=== PATIENT | female | born 1940 | race Caucasian/White ===

== ENCOUNTER 2016-11-04 11:59 | Emergency (ER) | payer MEDICARE ==
[2016-11-04 12:31] VITALS: BP 119/65
--- NOTE | 2016-11-04 14:53 | Emergency Department Report ---
ED ENT HPI - General Chief complaint: Sore Throat Stated complaint: SORET THROAT Time Seen by Provider: 11/04/16 14:15 Source: patient Mode of arrival: Ambulatory Limitations: No Limitations - History of Present Illness MD complaint: sore throat -: Gradual, week(s) (2) Location: throat Severity: mild Quality: burning Worsens with: swallowing - Related Data Previous Rx's Medication Instructions Recorded Last Taken Type Amoxicillin [Amoxicillin TAB] 875 mg PO BID #20 tablet 11/04/16 Unknown Rx Allergies Allergy/AdvReac Type Severity Reaction Status Date / Time No Known Allergies Allergy Unverified 11/04/16 12:26 ED Dental HPI - General Chief complaint: Sore Throat Stated complaint: SORET THROAT Time Seen by Provider: 11/04/16 14:15 Source: patient Mode of arrival: Ambulatory Limitations: No Limitations - History of Present Illness MD complaint: sore throat Severity: mild Quality: burning Worsens with: swallowing - Related Data Previous Rx's Medication Instructions Recorded Last Taken Type Amoxicillin [Amoxicillin TAB] 875 mg PO BID #20 tablet 11/04/16 Unknown Rx Allergies Allergy/AdvReac Type Severity Reaction Status Date / Time No Known Allergies Allergy Unverified 11/04/16 12:26 ED Review of Systems ROS: Stated complaint: SORET THROAT Other details as noted in HPI Constitutional: denies: chills, fever Eyes: denies: eye pain, eye discharge, vision change ENT: throat pain. denies: ear pain Respiratory: denies: cough, shortness of breath, wheezing Cardiovascular: denies: chest pain, palpitations Endocrine: no symptoms reported Gastrointestinal: denies: abdominal pain, nausea, diarrhea Genitourinary: denies: urgency, dysuria, discharge Musculoskeletal: denies: back pain, joint swelling, arthralgia Skin: denies: rash, lesions Neurological: denies: headache, weakness, paresthesias Psychiatric: denies: anxiety, depression Hematological/Lymphatic: denies: easy bleeding, easy bruising ED Past Medical Hx - Past Medical History Previous Medical History?: Yes Hx Hypertension: Yes - Surgical History Past Surgical History?: Yes Additional Surgical History: Hysterectomy - Social History Smoking Status: Former Smoker Substance Use Type: Alcohol, Prescribed - Medications Home Medications: Home Medications Medication Instructions Recorded Confirmed Last Taken Type Amoxicillin [Amoxicillin TAB] 875 mg PO BID #20 tablet 11/04/16 Unknown Rx ED Physical Exam - General Limitations: No Limitations General appearance: alert, in no apparent distress - Head Head exam: Present: atraumatic, normocephalic - Eye Eye exam: Present: normal appearance - ENT ENT exam: Present: mucous membranes moist - Expanded ENT Exam Expanded Throat exam: Positive: tonsillar erythema. Negative: tonsillar exudate, R peritonsillar mass, L peritonsillar mass - Neck Neck exam: Present: normal inspection, full ROM. Absent: tenderness, meningismus, lymphadenopathy - Respiratory Respiratory exam: Present: normal lung sounds bilaterally. Absent: respiratory distress - Cardiovascular Cardiovascular Exam: Present: regular rate, normal rhythm. Absent: systolic murmur, diastolic murmur, rubs, gallop - GI/Abdominal GI/Abdominal exam: Present: soft, normal bowel sounds - Extremities Exam Extremities exam: Present: normal inspection - Back Exam Back exam: Present: normal inspection - Neurological Exam Neurological exam: Present: alert, oriented X3 - Psychiatric Psychiatric exam: Present: normal affect, normal mood - Skin Skin exam: Present: warm, dry, intact, normal color. Absent: rash ED Course Vital Signs 11/04/16 12:26 Temperature 97.7 F Pulse Rate 81 Respiratory 16 Rate Blood Pressure 119/65 O2 Sat by Pulse 99 Oximetry Critical care attestation.: If time is entered above; I have spent that time in minutes in the direct care of this critically ill patient, excluding procedure time. ED Disposition Clinical Impression: Pharyngitis Disposition: DISCHARGED TO HOME OR SELFCARE Is pt being admited?: No Condition: Stable Instructions: Pharyngitis (ED) Prescriptions: Amoxicillin [Amoxicillin TAB] 875 mg PO BID #20 tablet Referrals: NISA EISENBERG MD [Primary Care Provider] - 3-5 Days
== END 2016-11-04 15:11 | disposition home or self-care (01) ==
LOC: ED 11:59
DX: J02.9 Acute pharyngitis, unspecified (principal); I10 Essential (primary) hypertension; Z87.891 Personal history of nicotine dependence
CPT/HCPCS: 99282

== ENCOUNTER 2022-03-31 18:48 | Emergency (ER) | payer MEDICARE ==
[2022-03-31 19:35] VITALS: BP 138/78
[2022-03-31] MEDS ORDERED: SODIUM CHLORIDE 0.9% 1000 ML 1,000 ML IV ONE (20:53)
--- NOTE | 2022-03-31 20:57 | Emergency Department Report ---
ED Female HPI - General Chief complaint: Urogenital-Female Stated complaint: UTI Time Seen by Provider: 03/31/22 20:33 Source: EMS Mode of arrival: Stretcher Limitations: Other - History of Present Illness Initial comments: 81 yo F with h/o dementia brought in by son with concern for likely bladder infection base on this patient urine smell. History is very limited to Son. No other modifying or associated factors. - Related Data Previous Rx's Medication Instructions Recorded Last Taken Type Amoxicillin [Amoxicillin TAB] 875 mg PO BID #20 tablet 11/04/16 Unknown Rx cephALEXin 150 mg PO BID 7 Days #7 04/01/22 Unknown Rx Allergies Allergy/AdvReac Type Severity Reaction Status Date / Time No Known Allergies Allergy Unverified 11/04/16 12:26 ED Review of Systems ROS: Stated complaint: UTI Other details as noted in HPI Comment: All other systems reviewed and negative Genitourinary: urgency, dysuria, frequency ED Past Medical Hx - Past Medical History Hx Hypertension: Yes - Surgical History Additional Surgical History: Hysterectomy - Social History Smoking Status: Former Smoker Substance Use Type: Alcohol, Prescribed - Medications Home Medications: Home Medications Medication Instructions Recorded Confirmed Last Taken Type Amoxicillin [Amoxicillin TAB] 875 mg PO BID #20 tablet 11/04/16 Unknown Rx cephALEXin 150 mg PO BID 7 Days #7 04/01/22 Unknown Rx ED Physical Exam - General Limitations: Other General appearance: other (demented) - Head Head exam: Present: normal inspection - Eye Eye exam: Present: normal appearance Pupils: Present: normal accommodation - ENT ENT exam: Present: normal exam, normal orophraynx, mucous membranes moist - Neck Neck exam: Present: normal inspection, full ROM. Absent: tenderness - Respiratory Respiratory exam: Present: normal lung sounds bilaterally. Absent: respiratory distress, accessory muscle use - Cardiovascular Cardiovascular Exam: Present: regular rate, normal heart sounds. Absent: normal rhythm - GI/Abdominal GI/Abdominal exam: Present: soft, normal bowel sounds. Absent: distended, te nderness - Extremities Exam Extremities exam: Present: normal inspection, normal capillary refill. Absent: tenderness, pedal edema - Back Exam Back exam: Absent: tenderness - Neurological Exam Neurological exam: Present: other (dementia) - Skin Skin exam: Present: warm, normal color ED Course Vital Signs 03/31/22 19:32 Pulse Rate 78 Respiratory 99 H Rate Blood Pressure 138/78 [Right] O2 Sat by Pulse 3 L Oximetry - Reevaluation(s) Reevaluation #1: 04/01/22 00:[address] Yeager while waiting for UA -- ED Medical Decision Making - Lab Data Result diagrams: 03/31/22 22:59 04/01/22 04:32 - Medical Decision Making here with possible UTI -- with h/o dementia -- will go ahead and order CBC, CMP and UA and give ivf ns 1L bolus x 1-- Labs reviewed and noted with elevated BUN/Cr 62/2.7 with normal potassium -- likely dehydration --will continue above ivf ns Also noted with Na+ 148 will hydrate Urinalysis is pending at this time-- pt signed to Dr Yeager while waiting for the UA Critical care attestation.: If time is entered above; I have spent that time in minutes in the direct care of this critically ill patient, excluding procedure time. ED Disposition Clinical Impression: UTI (urinary tract infection) Qualifiers: Urinary tract infection type: site unspecified Hematuria presence: without hematuria Qualified Code(s): N39.0 - Urinary tract infection, site not specified Disposition: HOME / SELF CARE / HOMELESS Is pt being admited?: No Does the pt Need Aspirin: No Condition: Stable Additional Instructions: Follow up with your primary care doctor within 1-2 business days for immediate reassessment. Take keflex 500mg by mouth, every 12 hours, for 7 days until your entire prescription has been completed. Observe your symptoms very carefully. Return to the nearest emergency department as soon as possible if you develop any back or flank pain, abdominal pain, vomiting, dizziness, weakness, any fever of 100.4 Fahrenheit or higher, or if any other new worrisome symptoms develop. Prescriptions: cephALEXin 150 mg PO BID 7 Days #7 Referrals: PRIMARY CARE, [Primary Care Provider] - 3-5 Days
[2022-03-31 23:54] LABS: Albumin 4.8 g/dL (3.9-5); Calcium 9.7 mg/dL (8.4-10.2)
[2022-03-31 23:56] LABS: Basophils % (Auto) 0.1 % (0.0-1.8); Hematocrit 44.7 % (30.3-42.9); Hemoglobin 14.7 gm/dl (10.1-14.3); Lymphocytes % (Auto) 8.6 % (13.4-35.0); Mean Corpuscular HGB Conc 33 % (30-34); Mean Corpuscular Volume 92 fl (79-97); Monocytes # (Auto) 0.9 K/mm3 (0.0-0.8); Monocytes % (Auto) 7.4 % (0.0-7.3); Platelet Count 244 K/mm3 (140-440); Red Blood Count 4.85 M/mm3 (3.65-5.03); Red Cell Distribution Width 15.2 % (13.2-15.2)
[2022-03-31 23:57] LABS: INR 1.1 (0.87-1.13)
[2022-04-01] MEDS ORDERED: SODIUM CHLORIDE 0.9% 1000 ML 1,000 ML ONE (00:27)
[2022-04-01] MEDS ORDERED: SODIUM CHLORIDE 0.9% 1000 ML 1,000 ML IV ONE (00:38)
[2022-04-01 02:58] LABS: Color,Urine Yellow (Yellow)
[2022-04-01 03:00] LABS: Bacteria,Urine 1+ /HPF (Negative); Mucus,Urine FEW /HPF
[2022-04-01] MEDS ORDERED: cefTRIAXone/NS 1 GM/50 ML 1 GM/50 ML BAG IV ONE (03:20)
[2022-04-01 05:56] LABS: Calcium 8.5 mg/dL (8.4-10.2)
--- NOTE | 2022-04-01 06:07 | Event Note ---
Date: 04/01/22 pt signed out to me by Dr. Calhoun. Pt's serum labs reviewed. I assessed the pt independently. She is comfortable appearing and is in no distress. VSS. I ordered the pt to receive 2L of NS IVSS. Repeat BMP demonstrates improvement in renal function. Pt given rocephin IVSS for UTI. Plan of care concerning need for outpatient oral abx (pts son is requesting that if possible, abx be prescribed as liquid secondary to the pt having difficulty swallowing pills) an close f/u with pcp, discussed with the pt's family. Pt's family verbalized understanding. Pt discharged to home in the care of her family.
== END 2022-04-01 06:33 | disposition home or self-care (01) ==
LOC: ED 18:48
DX: N39.0 Urinary tract infection, site not specified (principal); I10 Essential (primary) hypertension; F03.90 Unspecified dementia, unspecified severity, without behavioral disturbance, psychotic disturbance, mood disturbance, and anxiety
CPT/HCPCS: 36415; 80048; 80053; 81001; 85025; 85610; 85730; 87076; 87086; 87186; 96361; 96365; 99284; J0696; J7030; 96375

== ENCOUNTER 2022-04-13 11:09 | Inpatient (IN) | payer MEDICARE ==
[2022-04-13] MEDS ORDERED: SODIUM CHLORIDE 0.9% 1000 ML 1,000 ML IV ONE (12:29)
--- NOTE | 2022-04-13 12:35 | Emergency Department Report ---
ED Altered Mental Status HPI - General Chief Complaint: Altered Mental Status Stated Complaint: AMS Time Seen by Provider: 04/13/22 11:47 Source: patient, EMS Mode of arrival: Stretcher Limitations: Physical Limitation - History of Present Illness Initial Comments: 81 yo F brought in by family member with worsening confusion for the last 2-3 days. Pt has history of dementia and taken medication for it. She was seen at the hospital about 2 weeks ago when she was diagnosed with severe UTI and treated with antibiotics. Family says she seems to get a little better while on the antibiotics only was worsen lately. No fever or chills reported. Pt did not contribute to this history so it is very limited to the family narration. No other modifying or associated factors. MD Complaint: altered mental status - Related Data Previous Rx's Medication Instructions Recorded Last Taken Type Amoxicillin [Amoxicillin TAB] 875 mg PO BID #20 tablet 11/04/16 Unknown Rx cephALEXin 150 mg PO BID 7 Days #7 04/01/22 Unknown Rx Allergies Allergy/AdvReac Type Severity Reaction Status Date / Time No Known Allergies Allergy Unverified 11/04/16 12:26 ED Review of Systems ROS: Stated complaint: AMS Other details as noted in HPI Comment: All other systems reviewed and negative Constitutional: malaise, other (AMS). denies: chills, fever Neurological: other (confusion ) ED Past Medical Hx - Past Medical History Hx Hypertension: Yes Hx Dementia: Yes - Surgical History Additional Surgical History: Hysterectomy - Social History Smoking Status: Former Smoker Substance Use Type: Alcohol, Prescribed - Medications Home Medications: Home Medications Medication Instructions Recorded Confirmed Last Taken Type Amoxicillin [Amoxicillin TAB] 875 mg PO BID #20 tablet 11/04/16 Unknown Rx cephALEXin 150 mg PO BID 7 Days #7 04/01/22 Unknown Rx ED Physical Exam - General Limitations: Physical Limitation General appearance: alert, lethargic - Head Head exam: Present: atraumatic, normal inspection - Eye Eye exam: Present: normal appearance Pupils: Present: normal accommodation - ENT ENT exam: Present: normal exam, normal orophraynx, mucous membranes dry - Neck Neck exam: Present: normal inspection. Absent: tenderness - Respiratory Respiratory exam: Present: normal lung sounds bilaterally. Absent: respiratory distress, accessory muscle use - Cardiovascular Cardiovascular Exam: Present: regular rate, normal rhythm, normal heart sounds - GI/Abdominal GI/Abdominal exam: Present: soft, normal bowel sounds. Absent: distended, tenderness - Extremities Exam Extremities exam: Present: normal inspection, normal capillary refill. Absent: tenderness, pedal edema - Back Exam Back exam: Absent: tenderness - Neurological Exam Neurological exam: Present: alert, other (demented) - Skin Skin exam: Present: warm, normal color ED Course Vital Signs 04/13/22 11:55 Temperature 97.5 F L Pulse Rate 67 Respiratory 16 Rate Blood Pressure 127/73 [Left] O2 Sat by Pulse 99 Oximetry - Consultations Consultation #1: 04/13/22 18:54 Dr Celis consulted who accept pt for further evaluation and treatment - Lab Data Result diagrams: 04/13/22 13:04 04/13/22 13:04 Lab Results 04/13/22 04/13/22 04/13/22 Range/Units 13:04 13:04 13:04 WBC 8.8 (4.5-11.0) K/mm3 RBC 5.00 (3.65-5.03) M/mm3 Hgb 14.8 H (10.1-14.3) gm/dl Hct 46.7 H (30.3-42.9) % MCV 93 (79-97) fl MCH 30 (28-32) pg MCHC 32 (30-34) % RDW 15.5 H (13.2-15.2) % Plt Count 203 (140-440) K/mm3 Lymph % (Auto) 22.6 (13.4-35.0) % [place] % (Auto) 4.5 (0.0-7.3) % Eos % (Auto) 0.9 (0.0-4.3) % Baso % (Auto) 0.5 (0.0-1.8) % Lymph # (Auto) 2.0 (1.2-5.4) K/mm3 [place] # (Auto) 0.4 (0.0-0.8) K/mm3 Eos # (Auto) 0.1 (0.0-0.4) K/mm3 Baso # (Auto) 0.0 (0.0-0.1) K/mm3 Seg Neutrophils % 71.5 H (40.0-70.0) % Seg Neutrophils # 6.3 (1.8-7.7) K/mm3 PT 15.6 H (12.2-14.9) Sec. INR 1.11 (0.87-1.13) APTT 31.3 (24.2-36.6) Sec. Sodium 165 H* (137-145) mmol/L Potassium 4.7 (3.6-5.0) mmol/L Chloride 127.6 H (98-107) mmol/L Carbon Dioxide 29 (22-30) mmol/L Anion Gap 14 mmol/L BUN 66 H (7-17) mg/dL Creatinine 2.8 H (0.6-1.2) mg/dL Estimated GFR 20 ml/min BUN/Creatinine Ratio 24 % Glucose 114 H (65-100) mg/dL Lactic Acid (0.7-2.0) mmol/L Calcium 10.0 (8.4-10.2) mg/dL Total Bilirubin 0.50 (0.1-1.2) mg/dL AST 39 (5-40) units/L ALT 32 (7-56) units/L Alkaline Phosphatase 162 H (35-129) units/L Ammonia (25-60) umol/L Total Protein 7.2 (6.3-8.2) g/dL Albumin 4.3 (3.9-5) g/dL Albumin/Globulin Ratio 1.5 % Urine Color (Yellow) Urine Turbidity (Clear) Specific Ernul (Man) (1.003-1.030) Ur Protein (Man) (Negative) mg/dL Ur Ketones (Man) (Negative) Ur Nitrite (Man) (Negative) Urine Bilirubin (Man) (Negative) Urine Ictotest Leukocyte Esterase (Man) (Negative) Urine WBC (Auto) (0.0-6.0) /HPF Urine RBC (Auto) (0.0-6.0) /HPF U Epithel Cells (Auto) (0-13.0) /HPF Urine Bacteria (Auto) (Negative) /HPF Urine RBC (Manual) (Negative) Salicylates (2.8-20.0) mg/dL Acetaminophen (10.0-30.0) ug/mL 04/13/22 04/13/22 04/13/22 Range/Units 13:04 13:04 13:04 WBC (4.5-11.0) K/mm3 RBC (3.65-5.03) M/mm3 Hgb (10.1-14.3) gm/dl Hct (30.3-42.9) % MCV (79-97) fl MCH (28-32) pg MCHC (30-34) % RDW (13.2-15.2) % Plt Count (140-440) K/mm3 Lymph % (Auto) (13.4-35.0) % [place] % (Auto) (0.0-7.3) % Eos % (Auto) (0.0-4.3) % Baso % (Auto) (0.0-1.8) % Lymph # (Auto) (1.2-5.4) K/mm3 [place] # (Auto) (0.0-0.8) K/mm3 Eos # (Auto) (0.0-0.4) K/mm3 Baso # (Auto) (0.0-0.1) K/mm3 Seg Neutrophils % (40.0-70.0) % Seg Neutrophils # (1.8-7.7) K/mm3 PT (12.2-14.9) Sec. INR (0.87-1.13) APTT (24.2-36.6) Sec. Sodium (137-145) mmol/L Potassium (3.6-5.0) mmol/L Chloride (98-107) mmol/L Carbon Dioxide (22-30) mmol/L Anion Gap mmol/L BUN (7-17) mg/dL Creatinine (0.6-1.2) mg/dL Estimated GFR ml/min BUN/Creatinine Ratio % Glucose (65-100) mg/dL Lactic Acid 2.40 H* (0.7-2.0) mmol/L Calcium (8.4-10.2) mg/dL Total Bilirubin (0.1-1.2) mg/dL AST (5-40) units/L ALT (7-56) units/L Alkaline Phosphatase (35-129) units/L Ammonia 14.0 L (25-60) umol/L Total Protein (6.3-8.2) g/dL Albumin (3.9-5) g/dL Albumin/Globulin Ratio % Urine Color (Yellow) Urine Turbidity (Clear) Specific Ernul (Man) (1.003-1.030) Ur Protein (Man) (Negative) mg/dL Ur Ketones (Man) (Negative) Ur Nitrite (Man) (Negative) Urine Bilirubin (Man) (Negative) Urine Ictotest Leukocyte Esterase (Man) (Negative) Urine WBC (Auto) (0.0-6.0) /HPF Urine RBC (Auto) (0.0-6.0) /HPF U Epithel Cells (Auto) (0-13.0) /HPF Urine Bacteria (Auto) (Negative) /HPF Urine RBC (Manual) (Negative) Salicylates < 0.3 L (2.8-20.0) mg/dL Acetaminophen (10.0-30.0) ug/mL 04/13/22 04/13/22 Range/Units 13:04 13:51 WBC (4.5-11.0) K/mm3 RBC (3.65-5.03) M/mm3 Hgb (10.1-14.3) gm/dl Hct (30.3-42.9) % MCV (79-97) fl MCH (28-32) pg MCHC (30-34) % RDW (13.2-15.2) % Plt Count (140-440) K/mm3 Lymph % (Auto) (13.4-35.0) % [place] % (Auto) (0.0-7.3) % Eos % (Auto) (0.0-4.3) % Baso % (Auto) (0.0-1.8) % Lymph # (Auto) (1.2-5.4) K/mm3 [place] # (Auto) (0.0-0.8) K/mm3 Eos # (Auto) (0.0-0.4) K/mm3 Baso # (Auto) (0.0-0.1) K/mm3 Seg Neutrophils % (40.0-70.0) % Seg Neutrophils # (1.8-7.7) K/mm3 PT (12.2-14.9) Sec. INR (0.87-1.13) APTT (24.2-36.6) Sec. Sodium (137-145) mmol/L Potassium (3.6-5.0) mmol/L Chloride (98-107) mmol/L Carbon Dioxide (22-30) mmol/L Anion Gap mmol/L BUN (7-17) mg/dL Creatinine (0.6-1.2) mg/dL Estimated GFR ml/min BUN/Creatinine Ratio % Glucose (65-100) mg/dL Lactic Acid (0.7-2.0) mmol/L Calcium (8.4-10.2) mg/dL Total Bilirubin (0.1-1.2) mg/dL AST (5-40) units/L ALT (7-56) units/L Alkaline Phosphatase (35-129) units/L Ammonia (25-60) umol/L Total Protein (6.3-8.2) g/dL Albumin (3.9-5) g/dL Albumin/Globulin Ratio % Urine Color Yellow (Yellow) Urine Turbidity Slightly-cloudy (Clear) Specific Ernul (Man) 1.010 (1.003-1.030) Ur Protein (Man) <30 mg dl (Negative) mg/dL Ur Ketones (Man) Negative (Negative) Ur Nitrite (Man) Negative (Negative) Urine Bilirubin (Man) Negative (Negative) Urine Ictotest Not Reportable Leukocyte Esterase (Man) Negative (Negative) Urine WBC (Auto) 23.0 H (0.0-6.0) /HPF Urine RBC (Auto) 23.0 (0.0-6.0) /HPF U Epithel Cells (Auto) 3.0 (0-13.0) /HPF Urine Bacteria (Auto) 1+ (Negative) /HPF Urine RBC (Manual) 3+ (Negative) Salicylates (2.8-20.0) mg/dL Acetaminophen 5.0 L (10.0-30.0) ug/mL - Medical Decision Making here with AMS changes this is likely as a result of some kind of infection but can not rule out other differentials such pneumonia, urinary tract infection, myocardial infarction, cerebrovascular accident, seizure/ postictal, liver or kidney failure, or systemic infection that leads to sepsis so in order to rule out the above we will go ahead and order routine labs that includes CBC, CMP, urinalysis, CT scan of the brain, lactic acid, chest x-ray, EKG and troponin. In the meantime we will go ahead and start IV hydration while waiting for the ab ove labs. Lab reviewed and noted sodium to be elevated above baseline at 165 mg/dL from 147 on April 01 about 2 weeks ago. Also noted with elevated BUN/creatinine at 66/2.8 from 55/1.9 on April 01. Both visit potassium noted to be normal. Also noted with lactic acid at 2.40 with normal vital signs blood pressure, with a temp of 97.6.. With normal white count and unremarkable vital signs this is likely not septic urinalysis is pending at this point this might be dehydration coupled with UTI we will continue to monitor. Will start patient in ivf 1/2 ns 1L bolus x 1-- will discontinue the 0.9 ns-- Urinalysis resulted even though does not show urine nitrites or leukocytes but with elevated wbc and + bacteria with slightly elevated lactic acid-- will make a case for UTI -- and give Cefeprime 1g IVPB x 1-- Dr Celis consulted who accept this patient for further evaluation and treatment -- Critical care attestation.: If time is entered above; I have spent that time in minutes in the direct care of this critically ill patient, excluding procedure time. ED Disposition Clinical Impression: Hypernatremia, Renal insufficiency AMS (altered mental status) Qualifiers: Altered mental status type: unspecified Qualified Code(s): R41.82 - Altered mental status, unspecified UTI (urinary tract infection) Qualifiers: Urinary tract infection type: site unspecified Hematuria presence: without hematuria Qualified Code(s): N39.0 - Urinary tract infection, site not specified Disposition: 09 ADMITTED INPATIENT Is pt being admited?: Yes Does the pt Need Aspirin: No Condition: Stable Referrals: PRIMARY CARE, [Primary Care Provider] - 3-5 Days Time of Disposition: 18:55
[2022-04-13 13:14] LABS: Basophils % (Auto) 0.5 % (0.0-1.8); Eosinophils # (Auto) 0.1 K/mm3 (0.0-0.4); Eosinophils % (Auto) 0.9 % (0.0-4.3); Hematocrit 46.7 % (30.3-42.9); Hemoglobin 14.8 gm/dl (10.1-14.3); Lymphocytes % (Auto) 22.6 % (13.4-35.0); Mean Corpuscular HGB Conc 32 % (30-34); Mean Corpuscular Volume 93 fl (79-97); Monocytes # (Auto) 0.4 K/mm3 (0.0-0.8); Monocytes % (Auto) 4.5 % (0.0-7.3); Platelet Count 203 K/mm3 (140-440); Red Cell Distribution Width 15.5 % (13.2-15.2)
[2022-04-13 13:24] LABS: INR 1.11 (0.87-1.13)
[2022-04-13 13:25] LABS: Partial Thromboplastin Time 31.3 Sec. (24.2-36.6)
[2022-04-13 13:32] LABS: Albumin 4.3 g/dL (3.9-5)
--- NOTE | 2022-04-13 13:35 | XRay Report ---
CHEST 1 VIEW 04/13/2022 12:27 PM INDICATION / CLINICAL INFORMATION: Altered Mental Status. COMPARISON: None available. FINDINGS: SUPPORT DEVICES: None. HEART / MEDIASTINUM: Tortuous thoracic aorta. Cardiomediastinal silhouette is normal in size. LUNGS / PLEURA: No significant pulmonary or pleural abnormality. No pneumothorax. ADDITIONAL FINDINGS: No significant additional findings. IMPRESSION: 1. No acute findings. Signer Name: Micha Oleary MD Signed: 04/13/2022 1:31 PM Workstation Name: [employer]
--- NOTE | 2022-04-13 14:59 | Cat Scan Report ---
CT HEAD WITHOUT CONTRAST INDICATION / CLINICAL INFORMATION: Altered Mental Status. TECHNIQUE: All CT scans at this location are performed using CT dose reduction for ALARA by means of automated exposure control. COMPARISON: None available. FINDINGS: HEMORRHAGE: None. EXTRA-AXIAL SPACES: Normal in size and morphology for the patient's age. VENTRICULAR SYSTEM: Normal in size and morphology for the patient's age. CEREBRAL PARENCHYMA: No significant abnormality. No acute territorial infarct. Periventricular and choi bcortical white matter hypoattenuation is likely related to microangiopathic change. MIDLINE SHIFT / HERNIATION: None. CEREBELLUM / BRAINSTEM: No significant abnormality. ORBITS: Normal as visualized. SOFT TISSUES: No significant abnormality. SKULL: No significant abnormality. PARANASAL SINUSES / MASTOID AIR CELLS: Normal as visualized. ADDITIONAL FINDINGS: None. IMPRESSION: 1. No acute intracranial abnormality. Signer Name: Micha Oleary MD Signed: 04/13/2022 2:55 PM Workstation Name: [employer]
[2022-04-13] MEDS ORDERED: SODIUM CHLORIDE 0.45% 1000 ML 1,000 ML IV SCH (15:00)
[2022-04-13] MEDS ORDERED: ZIPRASIDONE MESYLATE 20 MG VIAL IM ONE (15:31)
[2022-04-13 17:37] LABS: Color,Urine Yellow (Yellow)
[2022-04-13 17:40] LABS: Bacteria,Urine 1+ /HPF (Negative)
[2022-04-13] MEDS ORDERED: HYDROmorphone 0.5 MG/0.5 ML INJ IV PRN (18:51)
[2022-04-13] MEDS ORDERED: oxyCODONE /ACETAMINOPHEN 5-325MG TAB PO PRN (18:51)
[2022-04-13] MEDS ORDERED: ACETAMINOPHEN 325 MG TAB PO PRN (18:51)
[2022-04-13] MEDS ORDERED: ALBUTEROL 2.5 MG/3 ML NEBU IH PRN (18:51)
[2022-04-13] MEDS ORDERED: ONDANSETRON 4 MG/2 ML INJ IV PRN (18:51)
[2022-04-13] MEDS ORDERED: CEFEPIME/NS 1 GM/100 ML 1 GM/100 ML BAG IV ONE ×2 (18:51→22:00)
--- NOTE | 2022-04-13 18:51 | History and Physical Report ---
History of Present Illness Chief complaint: She cant do anything anymore History of present illness: 81 YO Female with Vascular Dementia, Cerebral Atherosclerosis, Debility, HTN presents to ED for evaluation. Pt is confused with diminished cognition aat the time of my evaluation and is unable to provide history. Patient is history is provided by EMS staff, ED staff as well as the patient's son and who are at bedside during exam and interview. As per family the patient has experienced increased weakness and confusion over the past 2 weeks with worsening symptoms over the past 3 days. Patient is currently bedbound and nonambulatory and requires 6/6 assistance with activities of daily living. Patient has palliative performance score of 30%. Patient has experienced worsening memory loss over the past 2 months, as well as 15 pound weight loss over the past 1 month. EMS was notified and upon arrival the patient was found to be in distress and subsequent transported to [facility] for further care and evaluation of the aforementioned symptoms. The patient was seen and evaluated in the emergency department. All lab and imaging studies reviewed. Patient found to have urinary tract infection complicated by metabolic encephalopathy, hypernatremia, volume depletion, metabolic acidosis, and ARAMIS with ATN. Patient admitted to medical floor due to increased risk of worsening symptoms and for medical st abilization. Patient initiated on IV fluid resuscitation therapy with lactated Ringer's as well as IV antibiotic therapy. No reports fever, chills, chest pain, palpitations, productive cough, skin rash, recent contact, known exposure to COVID-19. No prior admission for review. All medication listed at time of admission as reconciled. Advanced care planning conducted in ED. Past History Past Medical History: hypertension, other (See HPI) Past Surgical History: hysterectomy Social history: , lives with family. denies: smoking, alcohol abuse Family history: diabetes, hypertension Medications and Allergies Allergies Allergy/AdvReac Type Severity Reaction Status Date / Time No Known Allergies Allergy Unverified 11/04/16 12:26 Home Medications Medication Instructions Recorded Confirmed Last Taken Type Amoxicillin [Amoxicillin TAB] 875 mg PO BID #20 tablet 11/04/16 Unknown Rx cephALEXin 150 mg PO BID 7 Days #7 04/01/22 Unknown Rx Active Meds: Active Medications Sodium Chloride (Nacl 0.45% 1000 Ml) 1,000 mls @ 125 mls/hr IV DIRECT LISA Review of Systems ROS unobtainable: due to mental status Exam - Constitutional Vitals: Temp Pulse Resp BP Pulse Ox 97.5 F L 67 16 127/73 99 04/13/22 11:55 04/13/22 11:55 04/13/22 11:55 04/13/22 11:55 04/13/22 11:55 General appearance: Present: mild distress - EENT Eyes: Present: PERRL ENT: hearing decreased, other (Or mucosa dry) - Neck Neck: Present: supple, normal ROM - Respiratory Respiratory effort: normal Respiratory: bilateral: diminished - Cardiovascular Heart Sounds: Present: S1 & S2. Absent: rub, click - Extremities Extremities: pulses symmetrical, No edema Peripheral Pulses: within normal limits - Abdominal General gastrointestinal: Present: soft, non-tender, non-distended, normal bowel sounds Female genitourinary: Present: normal - Integumentary Integumentary: Present: dry, clammy, decreased turgor - Musculoskeletal Musculoskeletal: generalized weakness - Psychiatric Psychiatric: no appropriate mood/affect, no intact judgment & insight, no memory intact - Neurologic Neurologic: CNII-XII intact, no focal deficits, moves all extremities, no gait normal Results - Labs CBC & Chem 7: 04/13/22 13:04 04/13/22 13:04 Labs: Abnormal lab results 04/13/22 04/13/22 04/13/22 Range/Units 13:04 13:04 13:04 Hgb 14.8 H (10.1-14.3) gm/dl Hct 46.7 H (30.3-42.9) % RDW 15.5 H (13.2-15.2) % Seg Neutrophils % 71.5 H (40.0-70.0) % PT 15.6 H (12.2-14.9) Sec. Sodium 165 H* (137-145) mmol/L Chloride 127.6 H (98-107) mmol/L BUN 66 H (7-17) mg/dL Creatinine 2.8 H (0.6-1.2) mg/dL Glucose 114 H (65-100) mg/dL Lactic Acid (0.7-2.0) mmol/L Alkaline Phosphatase 162 H (35-129) units/L Ammonia (25-60) umol/L Urine WBC (Auto) (0.0-6.0) /HPF Salicylates (2.8-20.0) mg/dL Acetaminophen (10.0-30.0) ug/mL 04/13/22 04/13/22 04/13/22 Range/Units 13:04 13:04 13:04 Hgb (10.1-14.3) gm/dl Hct (30.3-42.9) % RDW (13.2-15.2) % Seg Neutrophils % (40.0-70.0) % PT (12.2-14.9) Sec. Sodium (137-145) mmol/L Chloride (98-107) mmol/L BUN (7-17) mg/dL Creatinine (0.6-1.2) mg/dL Glucose (65-100) mg/dL Lactic Acid 2.40 H* (0.7-2.0) mmol/L Alkaline Phosphatase (35-129) units/L Ammonia 14.0 L (25-60) umol/L Urine WBC (Auto) (0.0-6.0) /HPF Salicylates < 0.3 L (2.8-20.0) mg/dL Acetaminophen (10.0-30.0) ug/mL 04/13/22 04/13/22 Range/Units 13:04 13:51 Hgb (10.1-14.3) gm/dl Hct (30.3-42.9) % RDW (13.2-15.2) % Seg Neutrophils % (40.0-70.0) % PT (12.2-14.9) Sec. Sodium (137-145) mmol/L Chloride (98-107) mmol/L BUN (7-17) mg/dL Creatinine (0.6-1.2) mg/dL Glucose (65-100) mg/dL Lactic Acid (0.7-2.0) mmol/L Alkaline Phosphatase (35-129) units/L Ammonia (25-60) umol/L Urine WBC (Auto) 23.0 H (0.0-6.0) /HPF Salicylates (2.8-20.0) mg/dL Acetaminophen 5.0 L (10.0-30.0) ug/mL Assessment and Plan - Patient Problems (1) UTI (urinary tract infection) Current Visit: Yes Status: Acute Qualifiers: Encounter type: initial encounter Plan to address problem: 's CBC, urinalysis, IV antibiotic therapy, IV fluid resuscitation therapy, supportive care. (2) Metabolic encephalopathy Current Visit: Yes Status: Acute Plan to address problem: CT scan head, neuro check, seizure precautions, treat UTI. (3) Hypernatremia Current Visit: Yes Status: Acute Plan to address problem: IV fluid resuscitation therapy, BMP, repeat BMP in a.m. (4) Volume depletion Current Visit: Yes Status: Acute Plan to address problem: IV fluid resuscitation therapy, BMP, repeat BMP in a.m. to monitor serum creatinine as well as GFR. (5) Acute kidney injury (ARAMIS) with acute tubular necrosis (ATN) Current Visit: Yes Status: Acute Plan to address problem: IV fluid resuscitation therapy, urine electrolytes, IV fluid resuscitation therapy, monitor urine output every shift, supportive care. (6) Metabolic acidosis Current Visit: Yes Status: Acute Plan to address problem: IV for resuscitation therapy, BMP, repeat BMP in AM. (7) Vascular dementia Current Visit: Yes Status: Acute Qualifiers: Dementia behavioral disturbance: without behavioral disturbance Qualified Code(s): F01.50 - Vascular dementia without behavioral disturbance Plan to address problem: Verbal prompting, verbal redirection, benzodiazepine therapy as clinically indicated. (8) Cerebral atherosclerosis Current Visit: Yes Status: Acute Plan to address problem: Risk factor reduction, antiplatelet therapy as clinically indicated. (9) DVT prophylaxis Current Visit: Yes Status: Acute Plan to address problem: SCD to bilateral lower extremities while in bed (10) Advance care planning Current Visit: Yes Status: Acute Plan to address problem: Disease education done, care plan discussed, diagnoses discussed, prognosis discussed, patient is full code at this time. Patient found to have a life ex pectancy of 6 months or less if the illness runs its expected course. Patient family informed of prognosis. Patient family elects to have home hospice evaluation. Hospice care team notified. +30 minutes. (11) Preventative health care Current Visit: Yes Status: Acute Plan to address problem: Patient family counseled regarding home safety, outpatient follow-up with primary care physician for all age and risk factor appropriate screening test. +30 minutes.
[2022-04-13] MEDS ORDERED: LACTATED RINGERS 1,000 ML IV SCH (20:00)
--- NOTE | 2022-04-14 08:49 | Progress Note ---
Assessment and Plan Assessment and plan: 81 YO Female with Vascular Dementia, Cerebral Atherosclerosis, Debility, HTN presents to ED for evaluation of increased weakness and confusion over the past 2 weeks with worsening symptoms over the past 3 days. Patient is currently bedbound and nonambulatory and requires 6/6 assistance with activities of daily living. Patient has palliative performance score of 30%. Patient has experienced worsening memory loss over the past 2 months, as well as 15 pound weight loss over the past 1 month. EMS was notified and upon arrival the patient was found to be in distress and subsequent transported to [facility] for further care and evaluation of the aforementioned symptoms. The patient was seen and evaluated in the emergency department. All lab and imaging studies reviewed. Patient found to have urinary tract infection complicated by metabolic encephalopathy, hypernatremia, volume depletion, metabolic acidosis, and ARAMIS with ATN. Patient admitted to medical floor due to increased risk of worsening symptoms and for medical stabilization. Sepsis. POA. Patient meets criteria given the tachycardia, altered mental status and diagnosis of UTI. UTI Toxic metabolic encephalopathy Hyponatremia Acute kidney injury secondary to vasomotor nephropathy +/- ATN. Vascular dementia Cerebral atherosclerosis 04/14/2022. Patient was recently treated in the emergency department but discharged home for UTI. Patient was given a prescription for Keflex for 7 days. Creatinine at that time was noted to be 1.9. Today the creatinine is 2.8. We will check renal ultrasound to rule out obstruction/hydronephrosis. Continue IV fluid hydration for now. Recheck BMP in the morning. Patient has 2 orders for IV fluids--lactated Ringer's and half-normal saline. We will discontinue lactated Ringer's and continue with hypotonic half-normal saline IV fluid. Continue IV antibiotics and follow-up blood and urine cultures. History Interval history: No new issues overnight. Hospitalist Physical - Constitutional Vitals: Temp Pulse Resp BP Pulse Ox 97.5 F L 44 L 20 161/68 92 04/13/22 11:55 04/14/22 00:02 04/14/22 00:02 04/14/22 00:00 04/14/22 00:02 General appearance: Present: mild distress - EENT Eyes: Present: PERRL, EOM intact ENT: hearing intact, clear oral mucosa, dentition normal - Neck Neck: Present: supple, normal ROM - Respiratory Respiratory effort: normal Respiratory: bilateral: CTA - Cardiovascular Rhythm: regular Heart Sounds: Present: S1 & S2. Absent: gallop, rub - Extremities Extremities: no ischemia, No edema, Full ROM - Abdominal General gastrointestinal: soft, non-tender, non-distended, normal bowel sounds - Integumentary Integumentary: Present: clear, warm, dry - Neurologic Neurologic: CNII-XII intact, moves all extremities Results - Labs CBC & Chem 7: 04/13/22 13:04 04/13/22 13:04 Labs: Laboratory Last Values WBC 8.8 K/mm3 (4.5-11.0) 04/13/22 13:04 RBC 5.00 M/mm3 (3.65-5.03) 04/13/22 13:04 Hgb 14.8 gm/dl (10.1-14.3) H 04/13/22 13:04 Hct 46.7 % (30.3-42.9) H 04/13/22 13:04 MCV 93 fl (79-97) 04/13/22 13:04 MCH 30 pg (28-32) 04/13/22 13:04 MCHC 32 % (30-34) 04/13/22 13:04 RDW 15.5 % (13.2-15.2) H 04/13/22 13:04 Plt Count 203 K/mm3 (140-440) 04/13/22 13:04 Lymph % (Auto) 22.6 % (13.4-35.0) 04/13/22 13:04 [place] % (Auto) 4.5 % (0.0-7.3) 04/13/22 13:04 Eos % (Auto) 0.9 % (0.0-4.3) 04/13/22 13:04 Baso % (Auto) 0.5 % (0.0-1.8) 04/13/22 13:04 Lymph # (Auto) 2.0 K/mm3 (1.2-5.4) 04/13/22 13:04 [place] # (Auto) 0.4 K/mm3 (0.0-0.8) 04/13/22 13:04 Eos # (Auto) 0.1 K/mm3 (0.0-0.4) 04/13/22 13:04 Baso # (Auto) 0.0 K/mm3 (0.0-0.1) 04/13/22 13:04 Seg Neutrophils % 71.5 % (40.0-70.0) H 04/13/22 13:04 Seg Neutrophils # 6.3 K/mm3 (1.8-7.7) 04/13/22 13:04 PT 15.6 Sec. (12.2-14.9) H 04/13/22 13:04 INR 1.11 (0.87-1.13) 04/13/22 13:04 APTT 31.3 Sec. (24.2-36.6) 04/13/22 13:04 Sodium 165 mmol/L (137-145) H* 04/13/22 13:04 Potassium 4.7 mmol/L (3.6-5.0) 04/13/22 13:04 Chloride 127.6 mmol/L (98-107) H 04/13/22 13:04 Carbon Dioxide 29 mmol/L (22-30) 04/13/22 13:04 Anion Gap 14 mmol/L 04/13/22 13:04 BUN 66 mg/dL (7-17) H 04/13/22 13:04 Creatinine 2.8 mg/dL (0.6-1.2) H 04/13/22 13:04 Estimated GFR 20 ml/min 04/13/22 13:04 BUN/Creatinine Ratio 24 % 04/13/22 13:04 Glucose 114 mg/dL (65-100) H 04/13/22 13:04 Osmolality 384 Mosm/kg 04/13/22 13:04 Lactic Acid 3.30 mmol/L (0.7-2.0) H* 04/13/22 18:41 Calcium 10.0 mg/dL (8.4-10.2) 04/13/22 13:04 Total Bilirubin 0.50 mg/dL (0.1-1.2) 04/13/22 13:04 AST 39 units/L (5-40) 04/13/22 13:04 ALT 32 units/L (7-56) 04/13/22 13:04 Alkaline Phosphatase 162 units/L (35-129) H 04/13/22 13:04 Ammonia 14.0 umol/L (25-60) L 04/13/22 13:04 Total Protein 7.2 g/dL (6.3-8.2) 04/13/22 13:04 Albumin 4.3 g/dL (3.9-5) 04/13/22 13:04 Albumin/Globulin Ratio 1.5 % 04/13/22 13:04 Urine Color Yellow (Yellow) 04/13/22 13:51 Urine Turbidity Slightly-cloudy (Clear) 04/13/22 13:51 Specific [place] (Man) 1.010 (1.003-1.030) 04/13/22 13:51 Ur Protein (Man) <30 mg dl mg/dL (Negative) 04/13/22 13:51 Ur Ketones (Man) Negative (Negative) 04/13/22 13:51 Ur Nitrite (Man) Negative (Negative) 04/13/22 13:51 Urine Bilirubin (Man) Negative (Negative) 04/13/22 13:51 Urine Ictotest Not Reportable 04/13/22 13:51 Leukocyte Esterase (Man) Negative (Negative) 04/13/22 13:51 Urine WBC (Auto) 23.0 /HPF (0.0-6.0) H 04/13/22 13:51 Urine RBC (Auto) 23.0 /HPF (0.0-6.0) 04/13/22 13:51 U Epithel Cells (Auto) 3.0 /HPF (0-13.0) 04/13/22 13:51 Urine Bacteria (Auto) 1+ /HPF (Negative) 04/13/22 13:51 Urine RBC (Manual) 3+ (Negative) 04/13/22 13:51 Salicylates < 0.3 mg/dL (2.8-20.0) L 04/13/22 13:04 Acetaminophen 5.0 ug/mL (10.0-30.0) L 04/13/22 13:04 [place]/IV: Voiding Method Incontinent Active Medications - Current Medications Current Medications: Generic Name Dose Route Start Last Admin Trade Name Freq PRN Reason Stop Dose Admin Acetaminophen 650 mg 04/13/22 18:51 Acetaminophen 325 Mg Tab PO Q4H PRN Pain MILD(1-3)/Fever >100.5/BENSON Albuterol 2.5 mg 04/13/22 18:51 Albuterol 2.5 Mg/3 Ml Nebu IH Q4HRT PRN Shortness Of Breath Hydromorphone HCl 0.5 mg 04/13/22 18:51 Hydromorphone 0.5 Mg/0.5 Ml Inj IV Q23H PRN Pain , Severe (7-10) Sodium Chloride 1,000 mls @ 125 mls/hr 04/13/22 15:00 04/13/22 21:28 Nacl 0.45% 1000 Ml IV 125 mls/hr DIRECT LISA Administration Ceftriaxone Sodium 1 gm in 50 mls @ 100 mls/hr 04/14/22 18:00 Rocephin/Ns 1 Gm/50 Ml IV Q24H LISA Protocol Lactated Ringer's 1,000 mls @ 75 mls/hr 04/13/22 20:00 04/14/22 07:52 Lactated Ringers IV 75 mls/hr DIRECT LISA Infusion Ondansetron HCl 4 mg 04/13/22 18:51 Ondansetron 4 Mg/2 Ml Inj IV Q8H PRN Nausea And Vomiting Oxycodone/Acetaminophen 1 tab 04/13/22 18:51 Oxycodone /Acetaminophen 5-325mg Tab PO Q6H PRN Pain, Moderate (4-6) Sodium Chloride 10 ml 04/13/22 22:00 04/14/22 07:51 Sodium Chloride 0.9% 10 Ml Flush Syringe IV Not Given BID LISA Sodium Chloride 10 ml 04/13/22 18:51 Sodium Chloride 0.9% 10 Ml Flush Syringe IV PRN PRN LINE FLUSH
[2022-04-14 09:21] LABS: Basophils % (Auto) 0.4 % (0.0-1.8); Eosinophils # (Auto) 0.1 K/mm3 (0.0-0.4); Eosinophils % (Auto) 2.1 % (0.0-4.3); Hematocrit 43.6 % (30.3-42.9); Hemoglobin 13.7 gm/dl (10.1-14.3); Lymphocytes # (Auto) 1.7 K/mm3 (1.2-5.4); Lymphocytes % (Auto) 25.7 % (13.4-35.0); Mean Corpuscular HGB Conc 32 % (30-34); Mean Corpuscular Volume 94 fl (79-97); Monocytes # (Auto) 0.3 K/mm3 (0.0-0.8); Monocytes % (Auto) 5.1 % (0.0-7.3); Platelet Count 168 K/mm3 (140-440); Red Blood Count 4.62 M/mm3 (3.65-5.03); Red Cell Distribution Width 15.8 % (13.2-15.2)
--- NOTE | 2022-04-14 09:21 | Consultation ---
History of Present Illness - Reason for Consult Consult date: 04/14/22 acute renal failure, chronic renal failure - History of Present Illness The patient is an 81 YO female with history notable for HTN, Dementia, Debility and CKD who presented to [facility] ED 04/13/22 with increased confused. Patient unable to provide history due to diminished cognition and information provided by her son and . As per family the patient has experienced increased weakness and confusion over the past 2 weeks. Patient is currently bedbound and nonambulatory and requires assistance with activities of daily living. Patient has experienced 15 pound weight loss over the past 1 month. No reports fever, chills, chest pain, cough, skin rash, N, V, D, abd pain, recent contact or known exposure to COVID-19. All lab and imaging studies reviewed. Patient admitted with UTI, metabolic encephalopathy, hypernatremia and ARAMIS. Nephrology consulted for further evaluation and treatment of ARAMIS. Past History Past Medical History: hypertension, other (See HPI) Past Surgical History: hysterectomy Social history: , lives with family. denies: smoking, alcohol abuse Family history: diabetes, hypertension Medications and Allergies Allergies Allergy/AdvReac Type Severity Reaction Status Date / Time No Known Allergies Allergy Verified 04/13/22 21:28 Home Medications Medication Instructions Recorded Confirmed Last Taken Type Amoxicillin [Amoxicillin TAB] 875 mg PO BID #20 tablet 11/04/16 Unknown Rx cephALEXin 150 mg PO BID 7 Days #7 04/01/22 Unknown Rx Active Meds: Active Medications Acetaminophen (Acetaminophen 325 Mg Tab) 650 mg PO Q4H PRN PRN Reason: Pain MILD(1-3)/Fever >100.5/BENSON Albuterol (Albuterol 2.5 Mg/3 Ml Nebu) 2.5 mg IH Q4HRT PRN PRN Reason: Shortness Of Breath Hydromorphone HCl (Hydromorphone 0.5 Mg/0.5 Ml Inj) 0.5 mg IV Q23H PRN PRN Reason: Pain , Severe (7-10) Sodium Chloride (Nacl 0.45% 1000 Ml) 1,000 mls @ 125 mls/hr IV DIRECT LISA Last Admin: 04/13/22 21:28 Dose: 125 mls/hr Ceftriaxone Sodium (Rocephin/Ns 1 Gm/50 Ml) 1 gm in 50 mls @ 100 mls/hr IV Q24H LISA; Protocol Ondansetron HCl (Ondansetron 4 Mg/2 Ml Inj) 4 mg IV Q8H PRN PRN Reason: Nausea And Vomiting Oxycodone/Acetaminophen (Oxycodone /Acetaminophen 5-325mg Tab) 1 tab PO Q6H PRN PRN Reason: Pain, Moderate (4-6) Sodium Chloride (Sodium Chloride 0.9% 10 Ml Flush Syringe) 10 ml IV BID LISA Last Admin: 04/14/22 09:15 Dose: 10 ml Sodium Chloride (Sodium Chloride 0.9% 10 Ml Flush Syringe) 10 ml IV PRN PRN PRN Reason: LINE FLUSH Review of Systems ROS unobtainable: due to mental status Exam - Vital Signs Vital signs: Vital Signs Temp Pulse Resp BP Pulse Ox 97.5 F L 67 16 127/73 99 04/13/22 11:55 04/13/22 11:55 04/13/22 11:55 04/13/22 11:55 04/13/22 11:55 Results - Lab Results 04/14/22 07:44 04/14/22 07:44 Most recent lab results Calcium 10.0 mg/dL (8.4-10.2) 04/13/22 13:04 Assessment and Plan 1. Acute kidney injury: Vasomotor ARAMIS in the setting of volume depletion. Urine studies and Renal US ordered. Baseline renal function unknown. Monitor renal function. Creatinine level improving. Avoid nephrotoxic agents. Meds dosage based on GFR. 2. FEN: Hypernatremia, hypotonic IV fluids, monitor. Replete lytes appropriately. Monitor lytes and volume status. 3. Sepsis, POA: Likely 2/2 UTI. Abx. Monitor. 4. UTI. 5. Toxic metabolic encephalopathy. 6. Dementia. Subjective: Patient was seen and examined at the bedside. and son at the bedside. Examination: General appearance: well-developed, appears stated age, appears emaciated, no distress HEENT: atraumatic, JOSE RAMON Neck: trachea midline Respiratory: ctab Heart: S1S2, regular, no murmur Abdomen: soft, bowel sounds heard, NT Integumentary: no obvious rash Neurologic: somnolent, confused, able to move extremities Ext: no edema
[2022-04-14 09:42] LABS: Calcium 9.1 mg/dL (8.4-10.2)
[2022-04-14] MEDS ORDERED: D5W/0.9% NACL 1,000 ML IV SCH (15:00)
[2022-04-14] MEDS: cefTRIAXone/NS 1 GM/50 ML 1 GM/50 ML BAG IV SCH (17:19)
[2022-04-15] MEDS: DEXTROSE 5% IN WATER 1,000 ML IV SCH (05:02)
[2022-04-15 05:59] LABS: BUN/Creatinine Ratio TNR; Blood Urea Nitrogen TNR mg/dL (7-17); Calcium TNR mg/dL (8.4-10.2)
[2022-04-15 06:00] LABS: Hemolysis Index TNR
[2022-04-15 07:24] LABS: Calcium 9.1 mg/dL (8.4-10.2)
--- NOTE | 2022-04-15 07:56 | Progress Note ---
Assessment and Plan 1. Acute kidney injury: Vasomotor ARAMIS in the setting of volume depletion. Renal US showed mild R hydro ?significance. Baseline renal function unknown. Monitor renal function. Creatinine level improving. Avoid nephrotoxic agents. Meds dosage based on GFR. 2. FEN: Hypernatremia, hypotonic IV fluids, monitor. Replete lytes appropriately. Monitor lytes and volume status. 3. Sepsis, POA: Likely 2/2 UTI. Abx. Monitor. 4. UTI. 5. Toxic metabolic encephalopathy. 6. Dementia. Subjective: Patient was seen and examined at the bedside. at the bedside. Examination: General appearance: well-developed, appears stated age, appears emaciated, no distress HEENT: atraumatic, [place] Neck: trachea midline Respiratory: ctab Heart: S1S2, regular, no murmur Abdomen: soft, bowel sounds heard, NT Integumentary: no obvious rash Neurologic: somnolent, confused, not following any command Ext: no edema Subjective Date of service: 04/15/22 Objective - Vital Signs Vital signs: Vital Signs - 12hr 04/14/22 04/14/22 04/14/22 19:59 20:39 21:31 Temperature 97.8 F Pulse Rate 72 Respiratory 18 16 Rate Blood Pressure 158/75 O2 Sat by Pulse 97 96 91 Oximetry 04/15/22 04:51 Temperature 98.4 F Pulse Rate Respiratory 16 Rate Blood Pressure 160/70 O2 Sat by Pulse Oximetry - Lab 04/14/22 07:44 04/15/22 06:37 Most recent lab results Calcium 9.1 mg/dL (8.4-10.2) 04/15/22 06:37 Phosphorus 3.20 mg/dL (2.5-4.5) 04/15/22 06:37 Medications & Allergies - Medications Allergies/Adverse Reactions: Allergies No Known Allergies Allergy (Verified 04/13/22 21:28) Home Medications: Home Medications Medication Instructions Recorded Confirmed Last Taken Type Amoxicillin [Amoxicillin TAB] 875 mg PO BID #20 tablet 11/04/16 Unknown Rx cephALEXin 150 mg PO BID 7 Days #7 04/01/22 Unknown Rx Active Medications: Generic Name Dose Route Start Last Admin Trade Name Freq PRN Reason Stop Dose Admin Acetaminophen 650 mg 04/13/22 18:51 Acetaminophen 325 Mg Tab PO Q4H PRN Pain MILD(1-3)/Fever >100.5/BENSON Albuterol 2.5 mg 04/13/22 18:51 Albuterol 2.5 Mg/3 Ml Nebu IH Q4HRT PRN Shortness Of Breath Hydromorphone HCl 0.5 mg 04/13/22 18:51 Hydromorphone 0.5 Mg/0.5 Ml Inj IV Q23H PRN Pain , Severe (7-10) Ceftriaxone Sodium 1 gm in 50 mls @ 100 mls/hr 04/14/22 18:00 04/14/22 17:19 Rocephin/Ns 1 Gm/50 Ml IV 100 mls/hr Q24H LISA Administration Protocol Dextrose 1,000 mls @ 150 mls/hr 04/14/22 23:00 04/15/22 05:02 D5w IV 75 mls/hr DIRECT LISA Administration Ondansetron HCl 4 mg 04/13/22 18:51 Ondansetron 4 Mg/2 Ml Inj IV Q8H PRN Nausea And Vomiting Oxycodone/Acetaminophen 1 tab 04/13/22 18:51 Oxycodone /Acetaminophen 5-325mg Tab PO Q6H PRN Pain, Moderate (4-6) Sodium Chloride 10 ml 04/13/22 22:00 04/14/22 21:18 Sodium Chloride 0.9% 10 Ml Flush Syringe IV 10 ml BID LISA Administration Sodium Chloride 10 ml 04/13/22 18:51 Sodium Chloride 0.9% 10 Ml Flush Syringe IV PRN PRN LINE FLUSH
--- NOTE | 2022-04-15 09:22 | Electrocardiograph Report ---
[facility] Test Date: 2022-04-14 Test Time: 06:49:56 Pat Name: KATELYN BARAHONA Department: Room: A372 1 Gender: F [employer] Supervisor: MELISSA : 1940 Requested By: KRISTAL LOPEZ Order Number: [id number] Reading MD: Lazarus Sanchez Measurements Intervals [place] Rate: 63 P: 79 DC: 130 QRS: 64 QRSD: 81 T: 47 QT: 432 QTc: 443 Interpretive Statements Sinus rhythm nonspecific st-t No previous ECG available for comparison Electronically Signed On 04-15-2022 9:21:59 EDT by Lazarus Sanchez
--- NOTE | 2022-04-15 12:12 | Ultrasound Report ---
ULTRASOUND RENAL INDICATION / CLINICAL INFORMATION: Acute renal failure.. COMPARISON: None available. FINDINGS: RIGHT KIDNEY: Length = 11.0 cm. - Echogenicity: Mildly echogenic. - Parenchymal Thickness: Normal. - Hydronephrosis: Mild. - Cyst / Mass: Multiple cysts. The largest is mildly complex (Bosniak 2) within internal septation me asuring 3.7 cm within the lower pole. - Stones: None seen. LEFT KIDNEY: Length = 9.5 cm. - Echogenicity: Mildly echogenic. - Parenchymal Thickness: Normal. - Hydronephrosis: None. - Cyst / Mass: Multiple simple appearing cysts. The largest measures 2.4 cm within the mid pole. - Stones: None seen. URINARY BLADDER: Distended. A small amount of debris is noted posteriorly. FREE FLUID: None. ADDITIONAL FINDINGS: None. IMPRESSION: 1. There is mild right hydronephrosis without sonographic evidence of obstructing mass or stone. 2. Findings suggestive of bilateral medical renal disease. Bilateral renal cysts. 3. Small amount of debris noted in the bladder. Scribed by: Temi Ocasio RDMS, CHRISSIE, BANG Scribed: 04/15/2022 10:25 AM I have reviewed the images, agree with this report, and edited this report as needed. Signer Name: Xu Rubalcava MD Signed: 04/15/2022 12:08 PM Workstation Name: [id number]
--- NOTE | 2022-04-15 12:51 | XRay Report ---
ABDOMEN 1 VIEW INDICATION / CLINICAL INFORMATION: verify placement for dobhoff for feedings. COMPARISON: None available. FINDINGS: Weighted tip feeding tube projects over the distal stomach or proximal duodenum. The tip of the coby ter is projecting cephalad. If postpyloric feeding is desired, recommend further advancement. Signer Name: Jesus Radford MD Signed: 04/15/2022 12:47 PM Workstation Name: [id number]
--- NOTE | 2022-04-15 14:38 | Progress Note ---
Assessment and Plan Assessment and plan: 81 YO Female with Vascular Dementia, Cerebral Atherosclerosis, Debility, HTN presents to ED for evaluation of increased weakness and confusion over the past 2 weeks with worsening symptoms over the past 3 days. Patient is currently bedbound and nonambulatory and requires 6/6 assistance with activities of daily living. Patient has palliative performance score of 30%. Patient has experienced worsening memory loss over the past 2 months, as well as 15 pound weight loss over the past 1 month. EMS was notified and upon arrival the patient was found to be in distress and subsequent transported to [facility] for further care and evaluation of the aforementioned symptoms. The patient was seen and evaluated in the emergency department. All lab and imaging studies reviewed. Patient found to have urinary tract infection complicated by metabolic encephalopathy, hypernatremia, volume depletion, metabolic acidosis, and ARAMIS with ATN. Patient admitted to medical floor due to increased risk of worsening symptoms and for medical stabilization. Hospital course: 04/14/2022. Patient was recently treated in the emergency department but discharged home for UTI. Patient was given a prescription for Keflex for 7 days. Creatinine at that time was noted to be 1.9. Today the creatinine is 2.8. We will check renal ultrasound to rule out obstruction/hydronephrosis. Continue IV fluid hydration for now. Recheck BMP in the morning. Patient has 2 orders for IV fluids--lactated Ringer's and half-normal saline. We will discontinue lactated Ringer's and continue with hypotonic half-normal saline IV fluid. Continue IV antibiotics and follow-up blood and urine cultures. 04/15/2020. Patient still experiencing acute metabolic encephalopathy. Hypernatremia with sodium of 165. Improvement in creatinine (currently 1.9 and down from 2.4). Ordered NG tube placement with free water flushes at 300 cc every 6 hours. Increased D5W to 150 cc/hour. Patient becomes overloaded, Lasix can be administered. Pending repeat BMP at 1400. #Sepsis (present on arrival) #Acute metabolic encephalopathy #Acute cystitis without hematuria Patient meets criteria given the tachycardia, altered mental status and diagnosis of UTI. Urinalysis revealing WBC 23 and 1+ bacteria. Blood cultures NGTD x24 hours. Continue to monitor. #Toxic metabolic encephalopathyruled out #Hypernatremia #ARAMIS on CKD stage III secondary to vasomotor nephropathyimproving Sodium 165 Creatinine 2.8 -->2.4--> 1.9 Increase D5W to 150 cc/hour. Ordered NG tube placement + free water flushes of 300 cc every 6 hours Pending repeat BMP at 1400 hrs. Nephrology consulted; appreciate recs #Vascular dementia #Cerebral atherosclerosis Continue supportive care Critical Care Billing: The high probability of a clinically significant, sudden or life threatening deterioration of the [renal] system(s) required my full and direct attention, intervention and personal management. The aggregate critical care time was [60] minutes. This time is in addition to time spent performing reported procedures but includes the following: [x] Data Review and interpretation [x] Patient assessment and monitoring of vital signs [x] Documentation [x] Medication orders and management Disposition Plan: Continue medical management Total Time Spent with Patient (Minutes): 45 minutes History Interval history: No acute events overnight. Hospitalist Physical - Constitutional Vitals: Temp Pulse Resp BP Pulse Ox 98.4 F 72 16 160/70 97 04/15/22 04:51 04/14/22 21:31 04/15/22 04:51 04/15/22 04:51 04/15/22 09:00 General appearance: Present: mild distress, other (Dementia at baseline; dry and cracked lips) - EENT Eyes: Present: PERRL, EOM intact ENT: hearing intact, clear oral mucosa, dentition normal - Neck Neck: Present: supple, normal ROM - Respiratory Respiratory effort: normal Respiratory: bilateral: diminished (On 2 L nasal cannula) - Cardiovascular Rhythm: regular Heart Sounds: Present: S1 & S2 - Extremities Extremities: no ischemia, pulses intact, pulses symmetrical, normal temperature, normal color Extremity abnormal: edema (Trace edema bilateral lower extremities) Peripheral Pulses: within normal limits - Abdominal General gastrointestinal: soft, non-tender, non-distended, normal bowel sounds - Integumentary Integumentary: Present: clear, warm, dry - Psychiatric Psychiatric: other (Unable to fully assess given patient's acute metabolic encephalopathy) - Neurologic Neurologic: moves all extremities, other (Drowsy but arousable) - Allied Health Allied health notes reviewed: nursing Results - Labs CBC & Chem 7: 04/14/22 07:44 04/15/22 06:37 Labs: Laboratory Last Values WBC 6.5 K/mm3 (4.5-11.0) 04/14/22 07:44 RBC 4.62 M/mm3 (3.65-5.03) 04/14/22 07:44 Hgb 13.7 gm/dl (10.1-14.3) 04/14/22 07:44 Hct 43.6 % (30.3-42.9) H 04/14/22 07:44 MCV 94 fl (79-97) 04/14/22 07:44 MCH 30 pg (28-32) 04/14/22 07:44 MCHC 32 % (30-34) 04/14/22 07:44 RDW 15.8 % (13.2-15.2) H 04/14/22 07:44 Plt Count 168 K/mm3 (140-440) 04/14/22 07:44 Lymph % (Auto) 25.7 % (13.4-35.0) 04/14/22 07:44 [place] % (Auto) 5.1 % (0.0-7.3) 04/14/22 07:44 Eos % (Auto) 2.1 % (0.0-4.3) 04/14/22 07:44 Baso % (Auto) 0.4 % (0.0-1.8) 04/14/22 07:44 Lymph # (Auto) 1.7 K/mm3 (1.2-5.4) 04/14/22 07:44 [place] # (Auto) 0.3 K/mm3 (0.0-0.8) 04/14/22 07:44 Eos # (Auto) 0.1 K/mm3 (0.0-0.4) 04/14/22 07:44 Baso # (Auto) 0.0 K/mm3 (0.0-0.1) 04/14/22 07:44 Seg Neutrophils % 66.7 % (40.0-70.0) 04/14/22 07:44 Seg Neutrophils # 4.3 K/mm3 (1.8-7.7) 04/14/22 07:44 PT 15.6 Sec. (12.2-14.9) H 04/13/22 13:04 INR 1.11 (0.87-1.13) 04/13/22 13:04 APTT 31.3 Sec. (24.2-36.6) 04/13/22 13:04 Sodium 165 mmol/L (137-145) H* 04/15/22 06:37 Potassium 3.9 mmol/L (3.6-5.0) 04/15/22 06:37 Chloride 127.4 mmol/L (98-107) H 04/15/22 06:37 Carbon Dioxide 26 mmol/L (22-30) 04/15/22 06:37 Anion Gap 16 mmol/L 04/15/22 06:37 BUN 39 mg/dL (7-17) H 04/15/22 06:37 Creatinine 1.9 mg/dL (0.6-1.2) H 04/15/22 06:37 Estimated GFR 31 ml/min 04/15/22 06:37 BUN/Creatinine Ratio 21 % 04/15/22 06:37 Glucose 127 mg/dL (65-100) H 04/15/22 06:37 Osmolality 384 Mosm/kg 04/13/22 13:04 Lactic Acid 2.00 mmol/L (0.7-2.0) 04/15/22 08:15 Calcium 9.1 mg/dL (8.4-10.2) 04/15/22 06:37 Phosphorus 3.20 mg/dL (2.5-4.5) 04/15/22 06:37 Total Bilirubin 0.50 mg/dL (0.1-1.2) 04/13/22 13:04 AST 39 units/L (5-40) 04/13/22 13:04 ALT 32 units/L (7-56) 04/13/22 13:04 Alkaline Phosphatase 162 units/L (35-129) H 04/13/22 13:04 Ammonia 14.0 umol/L (25-60) L 04/13/22 13:04 Total Protein 7.2 g/dL (6.3-8.2) 04/13/22 13:04 Albumin 4.3 g/dL (3.9-5) 04/13/22 13:04 Albumin/Globulin Ratio 1.5 % 04/13/22 13:04 Urine Color Yellow (Yellow) 04/13/22 13:51 Urine Turbidity Slightly-cloudy (Clear) 04/13/22 13:51 Specific [place] (Man) 1.010 (1.003-1.030) 04/13/22 13:51 Ur Protein (Man) <30 mg dl mg/dL (Negative) 04/13/22 13:51 Ur Ketones (Man) Negative (Negative) 04/13/22 13:51 Ur Nitrite (Man) Negative (Negative) 04/13/22 13:51 Urine Bilirubin (Man) Negative (Negative) 04/13/22 13:51 Urine Ictotest Not Reportable 04/13/22 13:51 Leukocyte Esterase (Man) Negative (Negative) 04/13/22 13:51 Urine WBC (Auto) 23.0 /HPF (0.0-6.0) H 04/13/22 13:51 Urine RBC (Auto) 23.0 /HPF (0.0-6.0) 04/13/22 13:51 U Epithel Cells (Auto) 3.0 /HPF (0-13.0) 04/13/22 13:51 Urine Bacteria (Auto) 1+ /HPF (Negative) 04/13/22 13:51 Urine RBC (Manual) 3+ (Negative) 04/13/22 13:51 Salicylates < 0.3 mg/dL (2.8-20.0) L 04/13/22 13:04 Acetaminophen 5.0 ug/mL (10.0-30.0) L 04/13/22 13:04 Microbiology: Microbiology 04/14/22 14:16 Peripheral/Venous Blood Culture - Preliminary NO GROWTH AFTER 24 HOURS 04/14/22 13:32 Peripheral/Venous Blood Culture - Preliminary NO GROWTH AFTER 24 HOURS Griffiths/IV: Voiding Method Incontinent Active Medications - Current Medications Current Medications: Generic Name Dose Route Start Last Admin Trade Name Freq PRN Reason Stop Dose Admin Acetaminophen 650 mg 04/13/22 18:51 Acetaminophen 325 Mg Tab PO Q4H PRN Pain MILD(1-3)/Fever >100.5/BENSON Albuterol 2.5 mg 04/13/22 18:51 Albuterol 2.5 Mg/3 Ml Nebu IH Q4HRT PRN Shortness Of Breath Hydromorphone HCl 0.5 mg 04/13/22 18:51 Hydromorphone 0.5 Mg/0.5 Ml Inj IV Q23H PRN Pain , Severe (7-10) Ceftriaxone Sodium 1 gm in 50 mls @ 100 mls/hr 04/14/22 18:00 04/14/22 17:19 Rocephin/Ns 1 Gm/50 Ml IV 100 mls/hr Q24H LISA Administration Protocol Dextrose 1,000 mls @ 150 mls/hr 04/14/22 23:00 04/15/22 05:02 D5w IV 75 mls/hr DIRECT LISA Administration Ondansetron HCl 4 mg 04/13/22 18:51 Ondansetron 4 Mg/2 Ml Inj IV Q8H PRN Nausea And Vomiting Oxycodone/Acetaminophen 1 tab 04/13/22 18:51 Oxycodone /Acetaminophen 5-325mg Tab PO Q6H PRN Pain, Moderate (4-6) Sodium Chloride 10 ml 04/13/22 22:00 04/15/22 09:29 Sodium Chloride 0.9% 10 Ml Flush Syringe IV 10 ml BID LISA Administration Sodium Chloride 10 ml 04/13/22 18:51 Sodium Chloride 0.9% 10 Ml Flush Syringe IV PRN PRN LINE FLUSH Nutrition/Malnutrition Assess - Dietary Evaluation Nutrition/Malnutrition Findings: Nutrition Notes Start: 04/14/22 14:32 Freq: Status: Active Protocol: Document 04/14/22 14:32 SONALI (Rec: 04/14/22 15:15 SONALI [id number]) Nutrition Notes Need for Assessment generated from: Low BMI Initial or Follow up Assessment Current Diagnosis Acute Kidney Injury Other Pertinent Diagnosis UTI, Met Encephalopathy, Hypernatremia, Volume Depletion, Met Acidosis Current Diet NPO Labs/Tests 04/14: Na 166 Cl 130.3 BUN 54 Cr 2.4 Pertinent Medications Nutritionally Unremarkable. Height 5 ft 5 in Weight 46.5 kg [place] Body Weight (kg) 56.81 BMI 17.0 Intake Prior to Admission Poor Weight change and time frame Reported unintentional wt loss of 2-13 lbs over past month [address] per MST. Weight Status Underweight Subjective/Other Information RD consult for BMI assessment. Pt is on room air with O2 Saturation @ 96%. Pt is currently NPO and per MST has underwent unintentional wt loss of 2- 13lbs / decreased appetite [employer] . Pt is missing teeth and is not ambulatory. Rn International strength is bilaterally weak per physical assessment. MST indicative of mild malnutrition. Pt undergoing continuous testing per RN in concern for NPO status. Pt is underweight with BMI of 17.1kg/m2 most likely in relation to body composition and advanced age. Percent of energy/protein needs met: N/A Burn Absent Trauma Absent GI Symptoms Constipation,Other Food Allergy No Skin Integrity/Comment WNL per physical assessment. Current % PO Other Minimum of two criteria Yes Interpretation of Weight Loss (severe) >5% in 1 month Fluid Accumulation N/A Reduced Rn International Strength N/A (non-severe) Protein-Calorie Malnutrition N\A #2 Nutrition Diagnosis Underweight Etiology Natural body composition and advanced age. As Evidenced by Signs and Symptoms BMI 17.1kg/m2. #1 Nutrition Diagnosis Malnutrition Etiology Possibly associated with metabolic encephalopathy and/ or vascular dementia. As Evidenced by Signs and Symptoms Reported wt loss per MST of >5 % in 1 month and decreased appetite [address]. Is patient on ventilator? No Is Patient Ambulatory and/or Out of Bed No REE-([facility]-confined to bed) 1130.172 Kcal/Kg value to use for calculation 33 Approximate Energy Requirements Using 1535 kcal/Kg Calculation Used for Recommendations Kcal/kg Additional Notes 1.2-1.5g/kg ABW; 56-70g PRO q day Nutrition Intervention Change Diet Order: Pt to advance to renal diet as tolerable. Goal #1 Pt to advance to PO intake as tolerable Goal #2 Pt to maintain current wt status Follow-Up By: 04/16/22
[2022-04-15] MEDS: FREE WATER PO SCH ×2 (14:54→21:56)
[2022-04-15] MEDS: cefTRIAXone/NS 1 GM/50 ML 1 GM/50 ML BAG IV SCH (17:45)
[2022-04-16] MEDS: DEXTROSE 5% IN WATER 1,000 ML IV SCH (01:58)
[2022-04-16] MEDS: FREE WATER PO SCH ×2 (05:57→09:06)
--- NOTE | 2022-04-16 09:56 | Progress Note ---
Assessment and Plan 1. Acute kidney injury: Vasomotor ARAMIS in the setting of volume depletion. Renal US showed mild R hydro ?significance. Baseline renal function unknown. Monitor renal function. Creatinine level improving. Avoid nephrotoxic agents. Meds dosage based on GFR. 2. FEN: Acute Hypernatremia, appropriate IV fluids, improving, monitor. Replete lytes appropriately. Monitor lytes and volume status. 3. Sepsis, POA: Likely 2/2 UTI. Abx. Monitor. 4. UTI. 5. Toxic metabolic encephalopathy. 6. Dementia. Subjective: Patient was seen and examined at the bedside. at the bedside. Examination: General appearance: well-developed, appears stated age, appears emaciated, no distress HEENT: atraumatic, JOSE RAMON Neck: trachea midline Respiratory: ctab Heart: S1S2, regular, no murmur Abdomen: soft, bowel sounds heard, NT Integumentary: no obvious rash Neurologic: somnolent, confused, moving exts, not following any command Ext: no edema Subjective Date of service: 04/16/22 Objective - Vital Signs Vital signs: Vital Signs - 12hr 04/15/22 04/16/22 22:03 06:03 Temperature 98.3 F 97.9 F Pulse Rate 62 55 L Respiratory 18 20 Rate Blood Pressure 147/79 137/73 O2 Sat by Pulse 92 96 Oximetry - Lab 04/14/22 07:44 04/16/22 09:22 Most recent lab results Calcium 9.1 mg/dL (8.4-10.2) 04/15/22 06:37 Phosphorus 3.20 mg/dL (2.5-4.5) 04/15/22 06:37 Medications & Allergies - Medications Allergies/Adverse Reactions: Allergies No Known Allergies Allergy (Verified 04/13/22 21:28) Home Medications: Home Medications Medication Instructions Recorded Confirmed Last Taken Type Amoxicillin [Amoxicillin TAB] 875 mg PO BID #20 tablet 11/04/16 Unknown Rx cephALEXin 150 mg PO BID 7 Days #7 04/01/22 Unknown Rx Active Medications: Generic Name Dose Route Start Last Admin Trade Name Freq PRN Reason Stop Dose Admin Acetaminophen 650 mg 04/13/22 18:51 Acetaminophen 325 Mg Tab PO Q4H PRN Pain MILD(1-3)/Fever >100.5/BENSON Albuterol 2.5 mg 04/13/22 18:51 Albuterol 2.5 Mg/3 Ml Nebu IH Q4HRT PRN Shortness Of Breath Hydromorphone HCl 0.5 mg 04/13/22 18:51 Hydromorphone 0.5 Mg/0.5 Ml Inj IV Q23H PRN Pain , Severe (7-10) Ceftriaxone Sodium 1 gm in 50 mls @ 100 mls/hr 04/14/22 18:00 04/15/22 17:45 Rocephin/Ns 1 Gm/50 Ml IV 100 mls/hr Q24H LISA Administration Protocol Dextrose 1,000 mls @ 150 mls/hr 04/14/22 23:00 04/16/22 01:58 D5w IV 75 mls/hr DIRECT LISA Administration Ondansetron HCl 4 mg 04/13/22 18:51 Ondansetron 4 Mg/2 Ml Inj IV Q8H PRN Nausea And Vomiting Oxycodone/Acetaminophen 1 tab 04/13/22 18:51 Oxycodone /Acetaminophen 5-325mg Tab PO Q6H PRN Pain, Moderate (4-6) Sodium Chloride 10 ml 04/13/22 22:00 04/16/22 09:06 Sodium Chloride 0.9% 10 Ml Flush Syringe IV 10 ml BID LISA Administration Sodium Chloride 10 ml 04/13/22 18:51 Sodium Chloride 0.9% 10 Ml Flush Syringe IV PRN PRN LINE FLUSH
[2022-04-16 10:26] LABS: Calcium 8.7 mg/dL (8.4-10.2)
--- NOTE | 2022-04-16 12:20 | Progress Note ---
Assessment and Plan Assessment and plan: 81 YO Female with Vascular Dementia, Cerebral Atherosclerosis, Debility, HTN presents to ED for evaluation of increased weakness and confusion over the past 2 weeks with worsening symptoms over the past 3 days. Patient is currently bedbound and nonambulatory and requires 6/6 assistance with activities of daily living. Patient has palliative performance score of 30%. Patient has experienced worsening memory loss over the past 2 months, as well as 15 pound weight loss over the past 1 month. EMS was notified and upon arrival the patient was found to be in distress and subsequent transported to [facility] for further care and evaluation of the aforementioned symptoms. The patient was seen and evaluated in the emergency department. All lab and imaging studies reviewed. Patient found to have urinary tract infection complicated by metabolic encephalopathy, hypernatremia, volume depletion, metabolic acidosis, and ARAMIS with ATN. Patient admitted to medical floor due to increased risk of worsening symptoms and for medical stabilization. Hospital course: 04/14/2022. Patient was recently treated in the emergency department but discharged home for UTI. Patient was given a prescription for Keflex for 7 days. Creatinine at that time was noted to be 1.9. Today the creatinine is 2.8. We will check renal ultrasound to rule out obstruction/hydronephrosis. Continue IV fluid hydration for now. Recheck BMP in the morning. Patient has 2 orders for IV fluids--lactated Ringer's and half-normal saline. We will discontinue lactated Ringer's and continue with hypotonic half-normal saline IV fluid. Continue IV antibiotics and follow-up blood and urine cultures. 04/15/2020. Patient still experiencing acute metabolic encephalopathy. Hypernatremia with sodium of 165. Improvement in creatinine (currently 1.9 and down from 2.4). Ordered NG tube placement with free water flushes at 300 cc every 6 hours. Increased D5W to 150 cc/hour. Patient becomes overloaded, Lasix can be administered. Pending repeat BMP at 1400. #Sepsis (present on arrival)improving #Acute metabolic encephalopathyimproving #Acute cystitis without hematuria Patient meets criteria given the tachycardia, altered mental status and diagnosis of UTI. Urinalysis revealing WBC 23 and 1+ bacteria. Blood cultures NGTD x 48 hours. Continue Rocephin 1 g every 24 hours (completes on 04/18/2022) #Toxic metabolic encephalopathyruled out #Hypernatremiaimproving #ARAMIS on CKD stage III secondary to vasomotor nephropathyimproving Sodium 165-->146 Creatinine 2.8 -->2.4--> 1.9-->1.4 Increase D5W to 100 cc/hour. Discontinuing NG tube and free water flushes as the patient's sodium is almost within normal limits. Nephrology consulted; appreciate recs #Vascular dementia #Cerebral atherosclerosis Continue supportive care #Advanced care planning -Disease education conducted, care plan discussed, diagnoses discussed, prognosis discussed, and patient acknowledges understanding with care plan -Time: +30 min #Discharge planning - Patient is pending resolution of acute metabolic encephalopathy, hyponatremia, and ARAMIS on CKD stage III - Case management has been made aware. - Discharge is tentatively 48-72 hours Disposition Plan: Continue medical management Total Time Spent with Patient (Minutes): 45 minutes History Interval history: No acute events overnight. Hospitalist Physical - Constitutional Vitals: Temp Pulse Resp BP Pulse Ox 97.9 F 55 L 20 137/73 96 04/16/22 06:03 04/16/22 06:03 04/16/22 06:03 04/16/22 06:03 04/16/22 06:03 General appearance: Present: mild distress, other (Dementia at baseline; dry and cracked lips) - EENT Eyes: Present: PERRL, EOM intact ENT: hearing intact, clear oral mucosa, other (NG tube in place) - Neck Neck: Present: supple, normal ROM - Respiratory Respiratory effort: normal Respiratory: bilateral: diminished (2 L nasal cannula) - Cardiovascular Rhythm: regular Heart Sounds: Present: S1 & S2 - Extremities Extremities: no ischemia, pulses intact, pulses symmetrical, No edema, normal temperature, normal color Peripheral Pulses: within normal limits - Abdominal General gastrointestinal: soft, non-tender, non-distended, normal bowel sounds - Integumentary Integumentary: Present: clear, warm, dry - Psychiatric Psychiatric: agitated, other (Currently encephalopathic but very arousable) - Neurologic Neurologic: CNII-XII intact, moves all extremities - Allied Health Allied health notes reviewed: nursing Results - Labs CBC & Chem 7: 04/14/22 07:44 04/16/22 09:22 Labs: Laboratory Last Values WBC 6.5 K/mm3 (4.5-11.0) 04/14/22 07:44 RBC 4.62 M/mm3 (3.65-5.03) 04/14/22 07:44 Hgb 13.7 gm/dl (10.1-14.3) 04/14/22 07:44 Hct 43.6 % (30.3-42.9) H 04/14/22 07:44 MCV 94 fl (79-97) 04/14/22 07:44 MCH 30 pg (28-32) 04/14/22 07:44 MCHC 32 % (30-34) 04/14/22 07:44 RDW 15.8 % (13.2-15.2) H 04/14/22 07:44 Plt Count 168 K/mm3 (140-440) 04/14/22 07:44 Lymph % (Auto) 25.7 % (13.4-35.0) 04/14/22 07:44 Finney % (Auto) 5.1 % (0.0-7.3) 04/14/22 07:44 Eos % (Auto) 2.1 % (0.0-4.3) 04/14/22 07:44 Baso % (Auto) 0.4 % (0.0-1.8) 04/14/22 07:44 Lymph # (Auto) 1.7 K/mm3 (1.2-5.4) 04/14/22 07:44 Finney # (Auto) 0.3 K/mm3 (0.0-0.8) 04/14/22 07:44 Eos # (Auto) 0.1 K/mm3 (0.0-0.4) 04/14/22 07:44 Baso # (Auto) 0.0 K/mm3 (0.0-0.1) 04/14/22 07:44 Seg Neutrophils % 66.7 % (40.0-70.0) 04/14/22 07:44 Seg Neutrophils # 4.3 K/mm3 (1.8-7.7) 04/14/22 07:44 PT 15.6 Sec. (12.2-14.9) H 04/13/22 13:04 INR 1.11 (0.87-1.13) 04/13/22 13:04 APTT 31.3 Sec. (24.2-36.6) 04/13/22 13:04 Sodium 146 mmol/L (137-145) H D 04/16/22 09:22 Potassium 3.6 mmol/L (3.6-5.0) 04/16/22 09:22 Chloride 113.1 mmol/L (98-107) H 04/16/22 09:22 Carbon Dioxide 25 mmol/L (22-30) 04/16/22 09:22 Anion Gap 12 mmol/L 04/16/22 09:22 BUN 22 mg/dL (7-17) H 04/16/22 09:22 Creatinine 1.5 mg/dL (0.6-1.2) H 04/16/22 09:22 Estimated GFR 40 ml/min 04/16/22 09:22 BUN/Creatinine Ratio 15 % 04/16/22 09:22 Glucose 120 mg/dL (65-100) H 04/16/22 09:22 Osmolality 384 Mosm/kg 04/13/22 13:04 Lactic Acid 2.00 mmol/L (0.7-2.0) 04/15/22 08:15 Calcium 8.7 mg/dL (8.4-10.2) 04/16/22 09:22 Phosphorus 3.20 mg/dL (2.5-4.5) 04/15/22 06:37 Total Bilirubin 0.50 mg/dL (0.1-1.2) 04/13/22 13:04 AST 39 units/L (5-40) 04/13/22 13:04 ALT 32 units/L (7-56) 04/13/22 13:04 Alkaline Phosphatase 162 units/L (35-129) H 04/13/22 13:04 Ammonia 14.0 umol/L (25-60) L 04/13/22 13:04 Total Protein 7.2 g/dL (6.3-8.2) 04/13/22 13:04 Albumin 4.3 g/dL (3.9-5) 04/13/22 13:04 Albumin/Globulin Ratio 1.5 % 04/13/22 13:04 Urine Color Yellow (Yellow) 04/13/22 13:51 Urine Turbidity Slightly-cloudy (Clear) 04/13/22 13:51 Specific [place] (Man) 1.010 (1.003-1.030) 04/13/22 13:51 Ur Protein (Man) <30 mg dl mg/dL (Negative) 04/13/22 13:51 Ur Ketones (Man) Negative (Negative) 04/13/22 13:51 Ur Nitrite (Man) Negative (Negative) 04/13/22 13:51 Urine Bilirubin (Man) Negative (Negative) 04/13/22 13:51 Urine Ictotest Not Reportable 04/13/22 13:51 Leukocyte Esterase (Man) Negative (Negative) 04/13/22 13:51 Urine WBC (Auto) 23.0 /HPF (0.0-6.0) H 04/13/22 13:51 Urine RBC (Auto) 23.0 /HPF (0.0-6.0) 04/13/22 13:51 U Epithel Cells (Auto) 3.0 /HPF (0-13.0) 04/13/22 13:51 Urine Bacteria (Auto) 1+ /HPF (Negative) 04/13/22 13:51 Urine RBC (Manual) 3+ (Negative) 04/13/22 13:51 Salicylates < 0.3 mg/dL (2.8-20.0) L 04/13/22 13:04 Acetaminophen 5.0 ug/mL (10.0-30.0) L 04/13/22 13:04 Microbiology: Microbiology 04/13/22 13:51 Urine,Clean Catch Urine Culture - Final 04/14/22 14:16 Peripheral/Venous Blood Culture - Preliminary NO GROWTH AFTER 24 HOURS 04/14/22 13:32 Peripheral/Venous Blood Culture - Preliminary NO GROWTH AFTER 24 HOURS Griffiths/IV: Voiding Method Incontinent Active Medications - Current Medications Current Medications: Generic Name Dose Route Start Last Admin Trade Name Freq PRN Reason Stop Dose Admin Acetaminophen 650 mg 04/13/22 18:51 Acetaminophen 325 Mg Tab PO Q4H PRN Pain MILD(1-3)/Fever >100.5/BENSON Albuterol 2.5 mg 04/13/22 18:51 Albuterol 2.5 Mg/3 Ml Nebu IH Q4HRT PRN Shortness Of Breath Hydromorphone HCl 0.5 mg 04/13/22 18:51 Hydromorphone 0.5 Mg/0.5 Ml Inj IV Q23H PRN Pain , Severe (7-10) Ceftriaxone Sodium 1 gm in 50 mls @ 100 mls/hr 04/14/22 18:00 04/15/22 17:45 Rocephin/Ns 1 Gm/50 Ml IV 100 mls/hr Q24H LISA Administration Protocol Dextrose 1,000 mls @ 150 mls/hr 04/14/22 23:00 04/16/22 01:58 D5w IV 75 mls/hr DIRECT LISA Administration Ondansetron HCl 4 mg 04/13/22 18:51 Ondansetron 4 Mg/2 Ml Inj IV Q8H PRN Nausea And Vomiting Oxycodone/Acetaminophen 1 tab 04/13/22 18:51 Oxycodone /Acetaminophen 5-325mg Tab PO Q6H PRN Pain, Moderate (4-6) Sodium Chloride 10 ml 04/13/22 22:00 04/16/22 09:06 Sodium Chloride 0.9% 10 Ml Flush Syringe IV 10 ml BID LISA Administration Sodium Chloride 10 ml 04/13/22 18:51 Sodium Chloride 0.9% 10 Ml Flush Syringe IV PRN PRN LINE FLUSH Nutrition/Malnutrition Assess - Dietary Evaluation Nutrition/Malnutrition Findings: Nutrition Notes Start: 04/14/22 14:32 Freq: Status: Active Protocol: Document 04/14/22 14:32 SONALI (Rec: 04/14/22 15:15 SONALI [id number]) Nutrition Notes Need for Assessment generated from: Low BMI Initial or Follow up Assessment Current Diagnosis Acute Kidney Injury Other Pertinent Diagnosis UTI, Met Encephalopathy, Hypernatremia, Volume Depletion, Met Acidosis Current Diet NPO Labs/Tests 04/14: Na 166 Cl 130.3 BUN 54 Cr 2.4 Pertinent Medications Nutritionally Unremarkable. Height 5 ft 5 in Weight 46.5 kg Anthon Body Weight (kg) 56.81 BMI 17.0 Intake Prior to Admission Poor Weight change and time frame Reported unintentional wt loss of 2-13 lbs over past month CAR PRE COOLER per MST. Weight Status Underweight Subjective/Other Information RD consult for BMI assessment. Pt is on room air with O2 Saturation @ 96%. Pt is currently NPO and per MST has underwent unintentional wt loss of 2- 13lbs / decreased appetite CAR PRE COOLER . Pt is missing teeth and is not ambulatory. Supervisor Customer Complaint Service strength is bilaterally weak per physical assessment. MST indicative of mild malnutrition. Pt undergoing continuous testing per RN in concern for NPO status. Pt is underweight with BMI of 17.1kg/m2 most likely in relation to body composition and advanced age. Percent of energy/protein needs met: N/A Burn Absent Trauma Absent GI Symptoms Constipation,Other Food Allergy No Skin Integrity/Comment WNL per physical assessment. Current % PO Other Minimum of two criteria Yes Interpretation of Weight Loss (severe) >5% in 1 month Fluid Accumulation N/A Reduced Supervisor Customer Complaint Service Strength N/A (non-severe) Protein-Calorie Malnutrition N\A #2 Nutrition Diagnosis Underweight Etiology Natural body composition and advanced age. As Evidenced by Signs and Symptoms BMI 17.1kg/m2. #1 Nutrition Diagnosis Malnutrition Etiology Possibly associated with metabolic encephalopathy and/ or vascular dementia. As Evidenced by Signs and Symptoms Reported wt loss per MST of >5 % in 1 month and decreased appetite CAR PRE COOLER. Is patient on ventilator? No Is Patient Ambulatory and/or Out of Bed No REE-([facility]-confined to bed) 1130.172 Kcal/Kg value to use for calculation 33 Approximate Energy Requirements Using 1535 kcal/Kg Calculation Used for Recommendations Kcal/kg Additional Notes 1.2-1.5g/kg ABW; 56-70g PRO q day Nutrition Intervention Change Diet Order: Pt to advance to renal diet as tolerable. Goal #1 Pt to advance to PO intake as tolerable Goal #2 Pt to maintain current wt status Follow-Up By: 04/16/22
[2022-04-16] MEDS: cefTRIAXone/NS 1 GM/50 ML 1 GM/50 ML BAG IV SCH (17:09)
[2022-04-16] MEDS ORDERED: SODIUM CHLORIDE 0.9% 500 ML 500 ML IV SCH (19:00)
[2022-04-17 07:51] LABS: Calcium 8.7 mg/dL (8.4-10.2)
--- NOTE | 2022-04-17 09:05 | Progress Note ---
Assessment and Plan 1. Acute kidney injury: Vasomotor ARAMIS in the setting of volume depletion. Renal US showed mild R hydro ?significance. Baseline renal function unknown. Monitor renal function. Creatinine level continue to improve. Avoid nephrotoxic agents. Meds dosage based on GFR. 2. FEN: Acute Hypernatremia, appropriate IV fluids, improving, monitor. Replete lytes appropriately. Monitor lytes and volume status. 3. Sepsis, POA: Likely 2/2 UTI. Abx. Monitor. 4. UTI. 5. Toxic metabolic encephalopathy. 6. Dementia. Subjective: Patient was seen and examined at the bedside. at the bedside. Examination: General appearance: well-developed, appears stated age, appears emaciated, no distress HEENT: atraumatic, JOSE RAMON Neck: trachea midline Respiratory: ctab Heart: S1S2, regular, no murmur Abdomen: soft, bowel sounds heard, NT Integumentary: no obvious rash Neurologic: somnolent, confused, moving exts, not following any command Ext: no edema Subjective Date of service: 04/17/22 Objective - Vital Signs Vital signs: Vital Signs - 12hr 04/16/22 04/16/22 04/16/22 21:14 22:00 22:01 Temperature 98.1 F Pulse Rate 74 Respiratory 16 Rate Blood Pressure 134/79 O2 Sat by Pulse 98 98 100 Oximetry 04/17/22 04/17/22 04:25 08:25 Temperature 97.6 F Pulse Rate 71 Respiratory 16 Rate Blood Pressure 143/74 O2 Sat by Pulse 99 96 Oximetry - Lab 04/14/22 07:44 04/17/22 07:18 Most recent lab results Calcium 8.7 mg/dL (8.4-10.2) 04/17/22 07:18 Phosphorus 3.20 mg/dL (2.5-4.5) 04/15/22 06:37 Medications & Allergies - Medications Allergies/Adverse Reactions: Allergies No Known Allergies Allergy (Verified 04/13/22 21:28) Active Medications: Generic Name Dose Route Start Last Admin Trade Name Freq PRN Reason Stop Dose Admin Acetaminophen 650 mg 04/13/22 18:51 Acetaminophen 325 Mg Tab PO Q4H PRN Pain MILD(1-3)/Fever >100.5/BENSON Albuterol 2.5 mg 04/13/22 18:51 Albuterol 2.5 Mg/3 Ml Nebu IH Q4HRT PRN Shortness Of Breath Hydromorphone HCl 0.5 mg 04/13/22 18:51 Hydromorphone 0.5 Mg/0.5 Ml Inj IV Q23H PRN Pain , Severe (7-10) Ceftriaxone Sodium 1 gm in 50 mls @ 100 mls/hr 04/14/22 18:00 04/16/22 17:09 Rocephin/Ns 1 Gm/50 Ml IV 100 mls/hr Q24H LISA Administration Protocol Sodium Chloride 500 mls @ 50 mls/hr 04/16/22 19:00 04/16/22 22:39 Nacl 0.9% 500 Ml IV 50 mls/hr DIRECT LISA Administration Ondansetron HCl 4 mg 04/13/22 18:51 Ondansetron 4 Mg/2 Ml Inj IV Q8H PRN Nausea And Vomiting Oxycodone/Acetaminophen 1 tab 04/13/22 18:51 Oxycodone /Acetaminophen 5-325mg Tab PO Q6H PRN Pain, Moderate (4-6) Sodium Chloride 10 ml 04/13/22 22:00 04/16/22 22:36 Sodium Chloride 0.9% 10 Ml Flush Syringe IV 10 ml BID LISA Administration Sodium Chloride 10 ml 04/13/22 18:51 Sodium Chloride 0.9% 10 Ml Flush Syringe IV PRN PRN LINE FLUSH
[2022-04-17] MEDS: D5W/0.45% NACL 1,000 ML IV SCH (10:42)
--- NOTE | 2022-04-17 15:10 | Progress Note ---
Assessment and Plan Assessment and plan: 81 YO Female with Vascular Dementia, Cerebral Atherosclerosis, Debility, HTN presents to ED for evaluation of increased weakness and confusion over the past 2 weeks with worsening symptoms over the past 3 days. Patient is currently bedbound and nonambulatory and requires 6/6 assistance with activities of daily living. Patient has palliative performance score of 30%. Patient has experienced worsening memory loss over the past 2 months, as well as 15 pound weight loss over the past 1 month. EMS was notified and upon arrival the patient was found to be in distress and subsequent transported to [facility] for further care and evaluation of the aforementioned symptoms. The patient was seen and evaluated in the emergency department. All lab and imaging studies reviewed. Patient found to have urinary tract infection complicated by metabolic encephalopathy, hypernatremia, volume depletion, metabolic acidosis, and ARAMIS with ATN. Patient admitted to medical floor due to increased risk of worsening symptoms and for medical stabilization. Hospital course: 04/14/2022. Patient was recently treated in the emergency department but discharged home for UTI. Patient was given a prescription for Keflex for 7 days. Creatinine at that time was noted to be 1.9. Today the creatinine is 2.8. We will check renal ultrasound to rule out obstruction/hydronephrosis. Continue IV fluid hydration for now. Recheck BMP in the morning. Patient has 2 orders for IV fluids--lactated Ringer's and half-normal saline. We will discontinue lactated Ringer's and continue with hypotonic half-normal saline IV fluid. Continue IV antibiotics and follow-up blood and urine cultures. 04/15/2020. Patient still experiencing acute metabolic encephalopathy. Hypernatremia with sodium of 165. Improvement in creatinine (currently 1.9 and down from 2.4). Ordered NG tube placement with free water flushes at 300 cc every 6 hours. Increased D5W to 150 cc/hour. Patient becomes overloaded, Lasix can be administered. Pending repeat BMP at 1400. #Sepsis (present on arrival)resolved #Acute metabolic encephalopathyimproving #Acute cystitis without hematuria Patient meets criteria given the tachycardia, altered mental status and diagnosis of UTI. Urinalysis revealing WBC 23 and 1+ bacteria. Blood cultures NGTD x 48 hours. Continue Rocephin 1 g every 24 hours (completes on 04/18/2022) #Toxic metabolic encephalopathyruled out #Hypernatremiaresolved #ARAMIS on CKD stage III secondary to vasomotor nephropathyimproving Sodium 165-->146 Creatinine 2.8 -->2.4--> 1.9-->1.4 Discontinued D5W to 100 cc/hour. Encouraged patient and family about increasing p.o. intake to prevent relapsing hypernatremia. Nephrology consulted; appreciate recs #Vascular dementia #Cerebral atherosclerosis Continue supportive care #Advanced care planning -Disease education conducted, care plan discussed, diagnoses discussed, prognosis discussed, and patient acknowledges understanding with care plan -Time: +30 min #Discharge planning - Patient is pending resolution of acute metabolic encephalopathy and completion of antibiotics for acute cystitis without hematuria. - Case management has been made aware. - Discharge is tentatively 24 hours Disposition Plan: Pending possible discharge home tomorrow Total Time Spent with Patient (Minutes): 45 minutes History Interval history: No acute events overnight. Hospitalist Physical - Constitutional Vitals: Temp Pulse Resp BP Pulse Ox 97.1 F L 68 18 115/68 97 04/17/22 11:46 04/17/22 11:46 04/17/22 11:46 04/17/22 11:46 04/17/22 11:46 General appearance: Present: no acute distress, other (Dementia at baseline; dry and cracked lips) - EENT Eyes: Present: PERRL, EOM intact ENT: hearing intact, clear oral mucosa, dentition normal - Neck Neck: Present: supple, normal ROM - Respiratory Respiratory effort: normal Respiratory: bilateral: CTA - Cardiovascular Rhythm: regular Heart Sounds: Present: S1 & S2 - Extremities Extremities: no ischemia, pulses intact, pulses symmetrical, No edema, normal temperature, normal color Peripheral Pulses: within normal limits - Abdominal General gastrointestinal: soft, non-tender, non-distended, normal bowel sounds - Integumentary Integumentary: Present: clear, warm, dry - Psychiatric Psychiatric: cooperative - Neurologic Neurologic: CNII-XII intact - Allied Health Allied health notes reviewed: nursing, social work Results - Labs CBC & Chem 7: 04/14/22 07:44 04/17/22 07:18 Labs: Laboratory Last Values WBC 6.5 K/mm3 (4.5-11.0) 04/14/22 07:44 RBC 4.62 M/mm3 (3.65-5.03) 04/14/22 07:44 Hgb 13.7 gm/dl (10.1-14.3) 04/14/22 07:44 Hct 43.6 % (30.3-42.9) H 04/14/22 07:44 MCV 94 fl (79-97) 04/14/22 07:44 MCH 30 pg (28-32) 04/14/22 07:44 MCHC 32 % (30-34) 04/14/22 07:44 RDW 15.8 % (13.2-15.2) H 04/14/22 07:44 Plt Count 168 K/mm3 (140-440) 04/14/22 07:44 Lymph % (Auto) 25.7 % (13.4-35.0) 04/14/22 07:44 [place] % (Auto) 5.1 % (0.0-7.3) 04/14/22 07:44 Eos % (Auto) 2.1 % (0.0-4.3) 04/14/22 07:44 Baso % (Auto) 0.4 % (0.0-1.8) 04/14/22 07:44 Lymph # (Auto) 1.7 K/mm3 (1.2-5.4) 04/14/22 07:44 [place] # (Auto) 0.3 K/mm3 (0.0-0.8) 04/14/22 07:44 Eos # (Auto) 0.1 K/mm3 (0.0-0.4) 04/14/22 07:44 Baso # (Auto) 0.0 K/mm3 (0.0-0.1) 04/14/22 07:44 Seg Neutrophils % 66.7 % (40.0-70.0) 04/14/22 07:44 Seg Neutrophils # 4.3 K/mm3 (1.8-7.7) 04/14/22 07:44 PT 15.6 Sec. (12.2-14.9) H 04/13/22 13:04 INR 1.11 (0.87-1.13) 04/13/22 13:04 APTT 31.3 Sec. (24.2-36.6) 04/13/22 13:04 Sodium 148 mmol/L (137-145) H 04/17/22 07:18 Potassium 4.0 mmol/L (3.6-5.0) 04/17/22 07:18 Chloride 113.0 mmol/L (98-107) H 04/17/22 07:18 Carbon Dioxide 27 mmol/L (22-30) 04/17/22 07:18 Anion Gap 12 mmol/L 04/17/22 07:18 BUN 16 mg/dL (7-17) 04/17/22 07:18 Creatinine 1.2 mg/dL (0.6-1.2) 04/17/22 07:18 Estimated GFR 52 ml/min 04/17/22 07:18 BUN/Creatinine Ratio 13 % 04/17/22 07:18 Glucose 92 mg/dL (65-100) 04/17/22 07:18 Osmolality 384 Mosm/kg 04/13/22 13:04 Lactic Acid 2.00 mmol/L (0.7-2.0) 04/15/22 08:15 Calcium 8.7 mg/dL (8.4-10.2) 04/17/22 07:18 Phosphorus 3.20 mg/dL (2.5-4.5) 04/15/22 06:37 Total Bilirubin 0.50 mg/dL (0.1-1.2) 04/13/22 13:04 AST 39 units/L (5-40) 04/13/22 13:04 ALT 32 units/L (7-56) 04/13/22 13:04 Alkaline Phosphatase 162 units/L (35-129) H 04/13/22 13:04 Ammonia 14.0 umol/L (25-60) L 04/13/22 13:04 Total Protein 7.2 g/dL (6.3-8.2) 04/13/22 13:04 Albumin 4.3 g/dL (3.9-5) 04/13/22 13:04 Albumin/Globulin Ratio 1.5 % 04/13/22 13:04 Urine Color Yellow (Yellow) 04/13/22 13:51 Urine Turbidity Slightly-cloudy (Clear) 04/13/22 13:51 Specific [place] (Man) 1.010 (1.003-1.030) 04/13/22 13:51 Ur Protein (Man) <30 mg dl mg/dL (Negative) 04/13/22 13:51 Ur Ketones (Man) Negative (Negative) 04/13/22 13:51 Ur Nitrite (Man) Negative (Negative) 04/13/22 13:51 Urine Bilirubin (Man) Negative (Negative) 04/13/22 13:51 Urine Ictotest Not Reportable 04/13/22 13:51 Leukocyte Esterase (Man) Negative (Negative) 04/13/22 13:51 Urine WBC (Auto) 23.0 /HPF (0.0-6.0) H 04/13/22 13:51 Urine RBC (Auto) 23.0 /HPF (0.0-6.0) 04/13/22 13:51 U Epithel Cells (Auto) 3.0 /HPF (0-13.0) 04/13/22 13:51 Urine Bacteria (Auto) 1+ /HPF (Negative) 04/13/22 13:51 Urine RBC (Manual) 3+ (Negative) 04/13/22 13:51 Salicylates < 0.3 mg/dL (2.8-20.0) L 04/13/22 13:04 Acetaminophen 5.0 ug/mL (10.0-30.0) L 04/13/22 13:04 SARS-CoV-2 (PCR) Negative (Negative) 04/17/22 11:50 Microbiology: Microbiology 04/14/22 14:16 Peripheral/Venous Blood Culture - Preliminary NO GROWTH AFTER 72 HOURS 04/14/22 13:32 Peripheral/Venous Blood Culture - Preliminary NO GROWTH AFTER 72 HOURS 04/13/22 13:51 Urine,Clean Catch Urine Culture - Final Griffith[place]/IV: Voiding Method Incontinent Active Medications - Current Medications Current Medications: Generic Name Dose Route Start Last Admin Trade Name Freq PRN Reason Stop Dose Admin Acetaminophen 650 mg 04/13/22 18:51 Acetaminophen 325 Mg Tab PO Q4H PRN Pain MILD(1-3)/Fever >100.5/BENSON Albuterol 2.5 mg 04/13/22 18:51 Albuterol 2.5 Mg/3 Ml Nebu IH Q4HRT PRN Shortness Of Breath Hydromorphone HCl 0.5 mg 04/13/22 18:51 Hydromorphone 0.5 Mg/0.5 Ml Inj IV Q23H PRN Pain , Severe (7-10) Ceftriaxone Sodium 1 gm in 50 mls @ 100 mls/hr 04/14/22 18:00 04/16/22 17:09 Rocephin/Ns 1 Gm/50 Ml IV 100 mls/hr Q24H LISA Administration Protocol Dextrose/Sodium Chloride 1,000 mls @ 60 mls/hr 04/17/22 11:00 04/17/22 10:42 D5/0.45ns IV 60 mls/hr DIRECT LISA Administration Ondansetron HCl 4 mg 04/13/22 18:51 Ondansetron 4 Mg/2 Ml Inj IV Q8H PRN Nausea And Vomiting Oxycodone/Acetaminophen 1 tab 04/13/22 18:51 Oxycodone /Acetaminophen 5-325mg Tab PO Q6H PRN Pain, Moderate (4-6) Sodium Chloride 10 ml 04/13/22 22:00 04/17/22 10:42 Sodium Chloride 0.9% 10 Ml Flush Syringe IV 10 ml BID LISA Administration Sodium Chloride 10 ml 04/13/22 18:51 Sodium Chloride 0.9% 10 Ml Flush Syringe IV PRN PRN LINE FLUSH Nutrition/Malnutrition Assess - Dietary Evaluation Nutrition/Malnutrition Findings: Nutrition Notes Start: 04/14/22 14:32 Freq: Status: Active Protocol: Document 04/16/22 12:48 TW (Rec: 04/16/22 12:53 TW [id number]) Nutrition Notes Need for Assessment generated from: Low BMI Initial or Follow up Brief Note Other Pertinent Diagnosis UTI, Met Encephalopathy, Hypernatremia, Volume Depletion, Met Acidosis Current Diet Renal Labs/Tests 04/16 Na 146 Cl 113 BUN 22 Cr 1.5 Pertinent Medications Reviewed Height 5 ft 5 in Weight 46.5 kg [place] Body Weight (kg) 56.81 BMI 17.0 Weight Status Underweight Subjective/Other Information F/U on Low BMI. Pt is NPO. Is patient on ventilator? No Is Patient Ambulatory and/or Out of Bed No REE-([facility]-confined to bed) 1130.172 Kcal/Kg value to use for calculation 33 Approximate Energy Requirements Using 1535 kcal/Kg Calculation Used for Recommendations Kcal/kg Additional Notes 1.2-1.5g/kg ABW; 56-70g PRO q day Nutrition Intervention Follow-Up By: 04/18/22 Additional Comments F/U on PO diet advancement or need for nutrition support
--- NOTE | 2022-04-17 15:15 | Discharge Summary ---
Providers - Providers Date of Admission: 04/13/22 18:51 Date of discharge: 04/18/22 Attending physician: ILIANA LEMON MD 04/13/22 18:53 Consult to Physician [CONS] Routine Comment: Consulting Provider: KALINA BRANCH Physician Instructions: Reason For Exam: aramis 04/15/22 09:33 Physical Therapy Evaluation and Treat [CONS] Routine Comment: Reason For Exam: PT/OT Eval and Treat Primary care physician: [employer] Hospitalization Reason for admission: Sepsis, acute metabolic encephalopathy, acute cystitis without hematuria Condition: Stable Pertinent studies: Reviewed. Procedures: None. Hospital course: The patient is an 81 YO Female with Vascular Dementia, Cerebral Atherosclerosis, Debility, HTN presents to ED for evaluation. Pt is confused with diminished cognition aat the time of my evaluation and is unable to provide history. Patient is history is provided by EMS staff, ED staff as well as the patient's son and who are at bedside during exam and interview. As per family the patient has experienced increased weakness and confusion over the past 2 weeks with worsening symptoms over the past 3 days. Patient is currently bedbound and nonambulatory and requires 6/6 assistance with activities of daily living. Patient has palliative performance score of 30%. Patient has experienced worsening memory loss over the past 2 months, as well as 15 pound weight loss over the past 1 month. EMS was notified and upon arrival the patient was found to be in distress and subsequent transported to [facility] for further care and evaluation of the aforementioned symptoms. The patient was seen and evaluated in the emergency department. All lab and imaging studies reviewed. Patient found to have urinary tract infection complicated by metabolic encephalopathy, hypernatremia, volume depletion, metabolic acidosis, and ARAMIS with ATN. Patient admitted to medical floor due to increased risk of worsening symptoms and for medical stabilization. Patient initiated on IV fluid resuscitation therapy with lactated Ringer's as well as IV antibiotic therapy. The patient's hypernatremia is likely secondary to decreased p.o. intake complicated by acute metabolic encephalopathy caused by acute cystitis without hematuria with baseline dementia. The patient's hypernatremia has since resolved, and the patient's family has been encouraged to increase p.o. intake to prevent relapsing hypernatremia, especially with her baseline dementia. Nephrology was consulted for management of hyponatremia and the patient's ARAMIS on CKD stage III. Patient was evaluated by physical therapy, and the patient will be [facility] to a [facility] facility. Patient is medically clear for discharge. Disposition: [facility] Final Discharge Diagnosis (Prints w/discharge instructions): Sepsis (present on arrival), acute metabolic encephalopathy (present on arrival), acute cystitis without hematuria, toxic metabolic encephalopathyruled out, hypernatremia, ARAMIS on CKD stage III secondary to vasomotor nephropathy, vascular dementia, cerebral atherosclerosis Time spent for discharge: 45 min Core Measure Documentation - Palliative Care Palliative Care/ Comfort Measures: Not Applicable - Core Measures Any of the following diagnoses?: none Exam - Constitutional Vitals: Temp Pulse Resp BP Pulse Ox 97.1 F L 68 18 115/68 97 04/17/22 11:46 04/17/22 11:46 04/17/22 11:46 04/17/22 11:46 04/17/22 11:46 General appearance: Present: no acute distress, other (Baseline dementia) - EENT Eyes: Present: PERRL, EOM intact ENT: hearing intact, clear oral mucosa, dentition normal - Neck Neck: Present: supple, normal ROM - Respiratory Respiratory effort: normal Respiratory: bilateral: CTA - Cardiovascular Rhythm: regular Heart Sounds: Present: S1 & S2 - Extremities Extremities: no ischemia, pulses intact, pulses symmetrical, No edema, normal temperature, normal color Peripheral Pulses: within normal limits - Abdominal General gastrointestinal: Present: soft, non-tender, non-distended, normal bowel sounds Female genitourinary: Present: deferred - Rectal Rectal Exam: deferred - Integumentary Integumentary: Present: clear, warm, dry - Musculoskeletal Musculoskeletal: generalized weakness - Psychiatric Psychiatric: cooperative - Neurologic Neurologic: CNII-XII intact - Allied Health Allied health notes reviewed: nursing, social work Plan Activity: advance as tolerated Diet: regular Additional Instructions: The patient is an 81 YO Female with Vascular Dementia, Cerebral Atherosclerosis, Debility, HTN presents to ED for evaluation. Pt is confused with diminished cognition aat the time of my evaluation and is unable to provide history. Patient is history is provided by EMS staff, ED staff as well as the patient's son and who are at bedside during exam and interview. As per family the patient has experienced increased weakness and confusion over the past 2 weeks with worsening symptoms over the past 3 days. Patient is currently bedbound and nonambulatory and requires 6/6 assistance with activities of daily living. Patient has palliative performance score of 30%. Patient has experienced worsening memory loss over the past 2 months, as well as 15 pound weight loss over the past 1 month. EMS was notified and upon arrival the patient was found to be in distress and subsequent transported to [facility] for further care and evaluation of the aforementioned symptoms. The patient was seen and evaluated in the emergency department. All lab and imaging studies reviewed. Patient found to have urinary tract infection complicated by metabolic encephalopathy, hypernatremia, volume depletion, metabolic acidosis, and ARAMIS with ATN. Patient admitted to medical floor due to increased risk of worsening symptoms and for medical stabilization. Patient initiated on IV fluid resuscitation therapy with lactated Ringer's as well as IV antibiotic therapy. The patient's hypernatremia is likely secondary to decreased p.o. intake complicated by acute metabolic encephalopathy caused by acute cystitis without hematuria with baseline dementia. The patient's hypernatremia has since resolved, and the patient's family has been encouraged to increase p.o. intake to prevent relapsing hypernatremia, especially with her baseline dementia. Nephrology was consulted for management of hyponatremia and the patient's ARAMIS on CKD stage III. Patient was evaluated by physical therapy, and the patient will be discharging to a prison facility. Patient is medically clear for discharge. Care Plan Goals: Patient is medically clear for discharge. Assessment: The patient is an 81 YO Female with Vascular Dementia, Cerebral Atherosclerosis, Debility, HTN presents to ED for evaluation. Pt is confused with diminished cognition aat the time of my evaluation and is unable to provide history. Patient is history is provided by EMS staff, ED staff as well as the patient's son and who are at bedside during exam and interview. As per family the patient has experienced increased weakness and confusion over the past 2 weeks with worsening symptoms over the past 3 days. Patient is currently bedbound and nonambulatory and requires 6/6 assistance with activities of daily living. Patient has palliative performance score of 30%. Patient has experienced worsening memory loss over the past 2 months, as well as 15 pound weight loss over the past 1 month. EMS was notified and upon arrival the patient was found to be in distress and subsequent transported to [facility] for further care and evaluation of the aforementioned symptoms. The patient was seen and evaluated in the emergency department. All lab and imaging studies reviewed. Patient found to have urinary tract infection complicated by metabolic encephalopathy, hypernatremia, volume depletion, metabolic acidosis, and ARAMIS with ATN. Patient admitted to medical floor due to increased risk of worsening symptoms and for medical stabilization. Patient initiated on IV fluid resuscitation therapy with lactated Ringer's as well as IV antibiotic therapy. The patient's hypernatremia is likely secondary to decreased p.o. intake complicated by acute metabolic encephalopathy caused by acute cystitis without hematuria with baseline dementia. The patient's hypernatremia has since resolved, and the patient's family has been encouraged to increase p.o. intake to prevent relapsing hypernatremia, especially with her baseline dementia. Nephrology was consulted for management of hyponatremia and the patient's ARAMIS on CKD stage III. Patient was evaluated by physical therapy, and the patient will be discharging to a prison facility. Patient is medically clear for discharge. Follow up with: PRIMARY MD JACKIE [Primary Care Provider] - 3-5 Days
[2022-04-17] MEDS: cefTRIAXone/NS 1 GM/50 ML 1 GM/50 ML BAG IV SCH (17:04)
[2022-04-18] MEDS: D5W/0.45% NACL 1,000 ML IV SCH (02:07)
[2022-04-18 05:58] LABS: Calcium 8.3 mg/dL (8.4-10.2)
--- NOTE | 2022-04-18 09:42 | Progress Note ---
Assessment and Plan 1. Acute kidney injury: Vasomotor ARAMIS in the setting of volume depletion. Renal US showed mild R hydro ?significance. Baseline renal function unknown. Monitor renal function. Creatinine level is better since admission. Avoid nephrotoxic agents. Meds dosage based on GFR. 2. FEN: Acute Hypernatremia, appropriate IV fluids, improving, monitor. Replete lytes appropriately. Monitor lytes and volume status. 3. Sepsis, POA: Likely 2/2 UTI. Abx. Monitor. 4. UTI. 5. Toxic metabolic encephalopathy. 6. Dementia. Subjective: Patient was seen and examined at the bedside. at the bedside. Examination: General appearance: well-developed, appears stated age, appears emaciated, no distress HEENT: atraumatic, JOSE RAMON Neck: trachea midline Respiratory: ctab Heart: S1S2, regular, no murmur Abdomen: soft, bowel sounds heard, NT Integumentary: no obvious rash Neurologic: somnolent, confused, moving exts, not following any command, mittens noted Ext: no edema Subjective Date of service: 04/18/22 Objective - Vital Signs Vital signs: Vital Signs - 12hr 04/17/22 04/18/22 22:00 05:40 Temperature 98.2 F Pulse Rate 91 H Respiratory 20 Rate Blood Pressure 147/67 O2 Sat by Pulse 98 93 Oximetry - Lab 04/14/22 07:44 04/19/22 07:57 Most recent lab results Calcium 8.3 mg/dL (8.4-10.2) L 04/18/22 05:25 Phosphorus 3.20 mg/dL (2.5-4.5) 04/15/22 06:37 Medications & Allergies - Medications Allergies/Adverse Reactions: Allergies No Known Allergies Allergy (Verified 04/13/22 21:28) Active Medications: Generic Name Dose Route Start Last Admin Trade Name Freq PRN Reason Stop Dose Admin Acetaminophen 650 mg 04/13/22 18:51 Acetaminophen 325 Mg Tab PO Q4H PRN Pain MILD(1-3)/Fever >100.5/BENSON Albuterol 2.5 mg 04/13/22 18:51 Albuterol 2.5 Mg/3 Ml Nebu IH Q4HRT PRN Shortness Of Breath Hydromorphone HCl 0.5 mg 04/13/22 18:51 04/18/22 02:08 Hydromorphone 0.5 Mg/0.5 Ml Inj IV 0.5 mg Q23H PRN Administration Pain , Severe (7-10) Ondansetron HCl 4 mg 04/13/22 18:51 Ondansetron 4 Mg/2 Ml Inj IV Q8H PRN Nausea And Vomiting Oxycodone/Acetaminophen 1 tab 04/13/22 18:51 Oxycodone /Acetaminophen 5-325mg Tab PO Q6H PRN Pain, Moderate (4-6) Sodium Chloride 10 ml 04/13/22 22:00 04/17/22 21:34 Sodium Chloride 0.9% 10 Ml Flush Syringe IV 10 ml BID LISA Administration Sodium Chloride 10 ml 04/13/22 18:51 Sodium Chloride 0.9% 10 Ml Flush Syringe IV PRN PRN LINE FLUSH
--- NOTE | 2022-04-18 14:31 | Progress Note ---
Assessment and Plan Assessment and plan: 81 YO Female with Vascular Dementia, Cerebral Atherosclerosis, Debility, HTN presents to ED for evaluation of increased weakness and confusion over the past 2 weeks with worsening symptoms over the past 3 days. Patient is currently bedbound and nonambulatory and requires 6/6 assistance with activities of daily living. Patient has palliative performance score of 30%. Patient has experienced worsening memory loss over the past 2 months, as well as 15 pound weight loss over the past 1 month. EMS was notified and upon arrival the patient was found to be in distress and subsequent transported to [facility] for further care and evaluation of the aforementioned symptoms. The patient was seen and evaluated in the emergency department. All lab and imaging studies reviewed. Patient found to have urinary tract infection complicated by metabolic encephalopathy, hypernatremia, volume depletion, metabolic acidosis, and ARAMIS with ATN. Patient admitted to medical floor due to increased risk of worsening symptoms and for medical stabilization. Hospital course: 04/14/2022. Patient was recently treated in the emergency department but discharged home for UTI. Patient was given a prescription for Keflex for 7 days. Creatinine at that time was noted to be 1.9. Today the creatinine is 2.8. We will check renal ultrasound to rule out obstruction/hydronephrosis. Continue IV fluid hydration for now. Recheck BMP in the morning. Patient has 2 orders for IV fluids--lactated Ringer's and half-normal saline. We will discontinue lactated Ringer's and continue with hypotonic half-normal saline IV fluid. Continue IV antibiotics and follow-up blood and urine cultures. 04/15/2020. Patient still experiencing acute metabolic encephalopathy. Hypernatremia with sodium of 165. Improvement in creatinine (currently 1.9 and down from 2.4). Ordered NG tube placement with free water flushes at 300 cc every 6 hours. Increased D5W to 150 cc/hour. Patient becomes overloaded, Lasix can be administered. Pending repeat BMP at 1400. #Sepsis (present on arrival)resolved #Acute metabolic encephalopathyimproving #Acute cystitis without hematuriaresolved Patient meets criteria given the tachycardia, altered mental status and diagnosis of UTI. Urinalysis revealing WBC 23 and 1+ bacteria. Blood cultures NGTD x 48 hours. Continue Rocephin 1 g every 24 hours (completes on 04/18/2022) #Toxic metabolic encephalopathyruled out #Hypernatremiaresolved #ARAMIS on CKD stage III secondary to vasomotor nephropathyimproving Sodium 165-->146 Creatinine 2.8 -->2.4--> 1.9-->1.4 Discontinued D5W to 100 cc/hour. Encouraged patient and family about increasing p.o. intake to prevent relapsing hypernatremia. Nephrology consulted; appreciate recs #Vascular dementia #Cerebral atherosclerosis Continue supportive care #Advanced care planning -Disease education conducted, care plan discussed, diagnoses discussed, prognosis discussed, and patient acknowledges understanding with care plan -Time: +30 min #Discharge planning - Patient is pending resolution of acute metabolic encephalopathy and completion of antibiotics for acute cystitis without hematuria. - Case management has been made aware. - Discharge is tentatively 48-72 hours Disposition Plan: Pending SNF authorization Total Time Spent with Patient (Minutes): 45 minutes History Interval history: No acute events overnight. Hospitalist Physical - Constitutional Vitals: Temp Pulse Resp BP Pulse Ox 97.9 F 67 18 122/60 96 04/18/22 12:00 04/18/22 12:00 04/18/22 12:00 04/18/22 12:00 04/18/22 12:00 General appearance: Present: no acute distress, other (Baseline dementia) - EENT Eyes: Present: PERRL, EOM intact ENT: hearing intact, clear oral mucosa, dentition normal - Neck Neck: Present: supple, normal ROM - Respiratory Respiratory effort: normal Respiratory: bilateral: CTA - Cardiovascular Rhythm: regular Heart Sounds: Present: S1 & S2 - Extremities Extremities: no ischemia, pulses intact, pulses symmetrical, No edema, normal temperature, normal color Peripheral Pulses: within normal limits - Abdominal General gastrointestinal: soft, non-tender, non-distended, normal bowel sounds - Integumentary Integumentary: Present: clear, warm, dry - Psychiatric Psychiatric: appropriate mood/affect - Neurologic Neurologic: CNII-XII intact - Allied Health Allied health notes reviewed: nursing Results - Labs CBC & Chem 7: 04/14/22 07:44 04/18/22 05:25 Labs: Laboratory Last Values WBC 6.5 K/mm3 (4.5-11.0) 04/14/22 07:44 RBC 4.62 M/mm3 (3.65-5.03) 04/14/22 07:44 Hgb 13.7 gm/dl (10.1-14.3) 04/14/22 07:44 Hct 43.6 % (30.3-42.9) H 04/14/22 07:44 MCV 94 fl (79-97) 04/14/22 07:44 MCH 30 pg (28-32) 04/14/22 07:44 MCHC 32 % (30-34) 04/14/22 07:44 RDW 15.8 % (13.2-15.2) H 04/14/22 07:44 Plt Count 168 K/mm3 (140-440) 04/14/22 07:44 Lymph % (Auto) 25.7 % (13.4-35.0) 04/14/22 07:44 [place] % (Auto) 5.1 % (0.0-7.3) 04/14/22 07:44 Eos % (Auto) 2.1 % (0.0-4.3) 04/14/22 07:44 Baso % (Auto) 0.4 % (0.0-1.8) 04/14/22 07:44 Lymph # (Auto) 1.7 K/mm3 (1.2-5.4) 04/14/22 07:44 [place] # (Auto) 0.3 K/mm3 (0.0-0.8) 04/14/22 07:44 Eos # (Auto) 0.1 K/mm3 (0.0-0.4) 04/14/22 07:44 Baso # (Auto) 0.0 K/mm3 (0.0-0.1) 04/14/22 07:44 Seg Neutrophils % 66.7 % (40.0-70.0) 04/14/22 07:44 Seg Neutrophils # 4.3 K/mm3 (1.8-7.7) 04/14/22 07:44 PT 15.6 Sec. (12.2-14.9) H 04/13/22 13:04 INR 1.11 (0.87-1.13) 04/13/22 13:04 APTT 31.3 Sec. (24.2-36.6) 04/13/22 13:04 Sodium 140 mmol/L (137-145) D 04/18/22 05:25 Potassium 3.7 mmol/L (3.6-5.0) 04/18/22 05:25 Chloride 107.6 mmol/L (98-107) H 04/18/22 05:25 Carbon Dioxide 27 mmol/L (22-30) 04/18/22 05:25 Anion Gap 9 mmol/L 04/18/22 05:25 BUN 24 mg/dL (7-17) H 04/18/22 05:25 Creatinine 1.5 mg/dL (0.6-1.2) H 04/18/22 05:25 Estimated GFR 40 ml/min 04/18/22 05:25 BUN/Creatinine Ratio 16 % 04/18/22 05:25 Glucose 109 mg/dL (65-100) H 04/18/22 05:25 Osmolality 384 Mosm/kg 04/13/22 13:04 Lactic Acid 2.00 mmol/L (0.7-2.0) 04/15/22 08:15 Calcium 8.3 mg/dL (8.4-10.2) L 04/18/22 05:25 Phosphorus 3.20 mg/dL (2.5-4.5) 04/15/22 06:37 Total Bilirubin 0.50 mg/dL (0.1-1.2) 04/13/22 13:04 AST 39 units/L (5-40) 04/13/22 13:04 ALT 32 units/L (7-56) 04/13/22 13:04 Alkaline Phosphatase 162 units/L (35-129) H 04/13/22 13:04 Ammonia 14.0 umol/L (25-60) L 04/13/22 13:04 Total Protein 7.2 g/dL (6.3-8.2) 04/13/22 13:04 Albumin 4.3 g/dL (3.9-5) 04/13/22 13:04 Albumin/Globulin Ratio 1.5 % 04/13/22 13:04 Urine Color Yellow (Yellow) 04/13/22 13:51 Urine Turbidity Slightly-cloudy (Clear) 04/13/22 13:51 Specific [place] (Man) 1.010 (1.003-1.030) 04/13/22 13:51 Ur Protein (Man) <30 mg dl mg/dL (Negative) 04/13/22 13:51 Ur Ketones (Man) Negative (Negative) 04/13/22 13:51 Ur Nitrite (Man) Negative (Negative) 04/13/22 13:51 Urine Bilirubin (Man) Negative (Negative) 04/13/22 13:51 Urine Ictotest Not Reportable 04/13/22 13:51 Leukocyte Esterase (Man) Negative (Negative) 04/13/22 13:51 Urine WBC (Auto) 23.0 /HPF (0.0-6.0) H 04/13/22 13:51 Urine RBC (Auto) 23.0 /HPF (0.0-6.0) 04/13/22 13:51 U Epithel Cells (Auto) 3.0 /HPF (0-13.0) 04/13/22 13:51 Urine Bacteria (Auto) 1+ /HPF (Negative) 04/13/22 13:51 Urine RBC (Manual) 3+ (Negative) 04/13/22 13:51 Salicylates < 0.3 mg/dL (2.8-20.0) L 04/13/22 13:04 Acetaminophen 5.0 ug/mL (10.0-30.0) L 04/13/22 13:04 SARS-CoV-2 (PCR) Negative (Negative) 04/17/22 11:50 Microbiology: Microbiology 04/14/22 14:16 Peripheral/Venous Blood Culture - Preliminary NO GROWTH AFTER 72 HOURS 04/14/22 13:32 Peripheral/Venous Blood Culture - Preliminary NO GROWTH AFTER 72 HOURS Griffiths/IV: Voiding Method Incontinent Active Medications - Current Medications Current Medications: Generic Name Dose Route Start Last Admin Trade Name Freq PRN Reason Stop Dose Admin Acetaminophen 650 mg 04/13/22 18:51 Acetaminophen 325 Mg Tab PO Q4H PRN Pain MILD(1-3)/Fever >100.5/BENSON Albuterol 2.5 mg 04/13/22 18:51 Albuterol 2.5 Mg/3 Ml Nebu IH Q4HRT PRN Shortness Of Breath Hydromorphone HCl 0.5 mg 04/13/22 18:51 04/18/22 02:08 Hydromorphone 0.5 Mg/0.5 Ml Inj IV 0.5 mg Q23H PRN Administration Pain , Severe (7-10) Ondansetron HCl 4 mg 04/13/22 18:51 Ondansetron 4 Mg/2 Ml Inj IV Q8H PRN Nausea And Vomiting Oxycodone/Acetaminophen 1 tab 04/13/22 18:51 Oxycodone /Acetaminophen 5-325mg Tab PO Q6H PRN Pain, Moderate (4-6) Sodium Chloride 10 ml 04/13/22 22:00 04/18/22 13:50 Sodium Chloride 0.9% 10 Ml Flush Syringe IV Not Given BID LISA Sodium Chloride 10 ml 04/13/22 18:51 Sodium Chloride 0.9% 10 Ml Flush Syringe IV PRN PRN LINE FLUSH Nutrition/Malnutrition Assess - Dietary Evaluation Nutrition/Malnutrition Findings: Nutrition Notes Start: 04/14/22 14:32 Freq: Status: Active Protocol: Document 04/18/22 12:44 CORBY (Rec: 04/18/22 12:50 CORBY [email or web address]) Nutrition Notes Initial or Follow up Reassessment Current Diagnosis Acute Kidney Injury Other Pertinent Diagnosis Acute metabolic encephalopathy , acute cystitis, vascular dementia Current Diet Renal GI soft Labs/Tests BUN 24 Cr 1.5 Pertinent Medications Reviewed Height 5 ft 5 in Weight 45.7 kg [place] Body Weight (kg) 56.81 BMI 16.7 Weight Status Underweight Subjective/Other Information No PO intakes documented for past two days and 0% of meals consumed on 04/15 and 04/16. Pt scheduled for D/C today. Burn Absent Trauma Absent #2 Nutrition Diagnosis Underweight Diagnosis Progress(for reassessment Continues documentation) #1 Nutrition Diagnosis Malnutrition As Evidenced by Signs and Symptoms poor PO intake Diagnosis Progress(for reassessment Continues documentation) Is patient on ventilator? No Is Patient Ambulatory and/or Out of Bed No REE-([facility]-confined to bed) 1120.584 Kcal/Kg value to use for calculation 35 Approximate Energy Requirements Using 1600 kcal/Kg Calculation Used for Recommendations Kcal/kg Additional Notes Pro needs 0.8-1.2g/k-55g/ day Fluid needs per MD. Nutrition Intervention Change Diet Order: Continue current diet order Goal #1 PO intake to meet nutrient needs as best possible Goal #2 Wt maintenance and/or gain Anticipated Discharge Needs: Consider ONS 2-3 times daily if PO intake of meals remain suboptimal Follow-Up By: 04/21/22 Additional Comments F/U: intakes, need for ONS
[2022-04-18] MEDS ORDERED: DEXTROSE 5% IN WATER 1,000 ML IV SCH (15:00)
[2022-04-19 08:33] LABS: Hemolysis Index 562
[2022-04-19 08:38] LABS: BUN/Creatinine Ratio TNR; Blood Urea Nitrogen TNR mg/dL (7-17)
[2022-04-19 08:39] LABS: Calcium TNR mg/dL (8.4-10.2)
--- NOTE | 2022-04-19 14:39 | Progress Note ---
Assessment and Plan 1. Acute kidney injury: Vasomotor ARAMIS in the setting of volume depletion. Renal US showed mild R hydro ?significance. Baseline renal function unknown. Monitor renal function. Creatinine level is better since admission. Avoid nephrotoxic agents. Meds dosage based on GFR. 2. FEN: Acute Hypernatremia, appropriate IV fluids, improved, monitor. Replete lytes appropriately. Monitor lytes and volume status. 3. Sepsis, POA: Likely 2/2 UTI. Abx. Monitor. 4. UTI. 5. Toxic metabolic encephalopathy. 6. Dementia. Subjective: Patient was seen and examined at the bedside. Examination: General appearance: well-developed, appears stated age, appears emaciated, no distress HEENT: atraumatic, JOSE RAMON Neck: trachea midline Respiratory: ctab Heart: S1S2, regular, no murmur Abdomen: soft, bowel sounds heard, NT Integumentary: no obvious rash Neurologic: somnolent, moving exts, not following any command, mittens noted Ext: no edema Subjective Date of service: 04/19/22 Objective - Vital Signs Vital signs: Vital Signs - 12hr 04/19/22 04/19/22 04/19/22 04:59 08:57 11:38 Temperature 97.9 F 97.2 F L Pulse Rate 80 Respiratory 18 18 Rate Blood Pressure 131/53 140/76 O2 Sat by Pulse 98 100 Oximetry - Lab 04/14/22 07:44 04/19/22 14:18 Most recent lab results Calcium TNR 04/19/22 07:57 Phosphorus 3.20 mg/dL (2.5-4.5) 04/15/22 06:37 Medications & Allergies - Medications Allergies/Adverse Reactions: Allergies No Known Allergies Allergy (Verified 04/13/22 21:28) Active Medications: Generic Name Dose Route Start Last Admin Trade Name Freq PRN Reason Stop Dose Admin Acetaminophen 650 mg 04/13/22 18:51 Acetaminophen 325 Mg Tab PO Q4H PRN Pain MILD(1-3)/Fever >100.5/BENSON Albuterol 2.5 mg 04/13/22 18:51 Albuterol 2.5 Mg/3 Ml Nebu IH Q4HRT PRN Shortness Of Breath Hydromorphone HCl 0.5 mg 04/13/22 18:51 04/18/22 02:08 Hydromorphone 0.5 Mg/0.5 Ml Inj IV 0.5 mg Q23H PRN Administration Pain , Severe (7-10) Dextrose 1,000 mls @ 75 mls/hr 04/18/22 15:00 D5w IV DIRECT LISA Ondansetron HCl 4 mg 04/13/22 18:51 Ondansetron 4 Mg/2 Ml Inj IV Q8H PRN Nausea And Vomiting Oxycodone/Acetaminophen 1 tab 04/13/22 18:51 Oxycodone /Acetaminophen 5-325mg Tab PO Q6H PRN Pain, Moderate (4-6) Sodium Chloride 10 ml 04/13/22 22:00 04/19/22 09:27 Sodium Chloride 0.9% 10 Ml Flush Syringe IV 10 ml BID LISA Administration Sodium Chloride 10 ml 04/13/22 18:51 Sodium Chloride 0.9% 10 Ml Flush Syringe IV PRN PRN LINE FLUSH
[2022-04-19 14:48] LABS: Calcium 8.5 mg/dL (8.4-10.2)
--- NOTE | 2022-04-19 15:27 | Progress Note ---
Assessment and Plan Assessment and plan: 81 YO Female with Vascular Dementia, Cerebral Atherosclerosis, Debility, HTN presents to ED for evaluation of increased weakness and confusion over the past 2 weeks with worsening symptoms over the past 3 days. Patient is currently bedbound and nonambulatory and requires 6/6 assistance with activities of daily living. Patient has palliative performance score of 30%. Patient has experienced worsening memory loss over the past 2 months, as well as 15 pound weight loss over the past 1 month. EMS was notified and upon arrival the patient was found to be in distress and subsequent transported to [facility] for further care and evaluation of the aforementioned symptoms. The patient was seen and evaluated in the emergency department. All lab and imaging studies reviewed. Patient found to have urinary tract infection complicated by metabolic encephalopathy, hypernatremia, volume depletion, metabolic acidosis, and ARAMIS with ATN. Patient admitted to medical floor due to increased risk of worsening symptoms and for medical stabilization. Hospital course: 04/14/2022. Patient was recently treated in the emergency department but discharged home for UTI. Patient was given a prescription for Keflex for 7 days. Creatinine at that time was noted to be 1.9. Today the creatinine is 2.8. We will check renal ultrasound to rule out obstruction/hydronephrosis. Continue IV fluid hydration for now. Recheck BMP in the morning. Patient has 2 orders for IV fluids--lactated Ringer's and half-normal saline. We will discontinue lactated Ringer's and continue with hypotonic half-normal saline IV fluid. Continue IV antibiotics and follow-up blood and urine cultures. 04/15/2020. Patient still experiencing acute metabolic encephalopathy. Hypernatremia with sodium of 165. Improvement in creatinine (currently 1.9 and down from 2.4). Ordered NG tube placement with free water flushes at 300 cc every 6 hours. Increased D5W to 150 cc/hour. Patient becomes overloaded, Lasix can be administered. Pending repeat BMP at 1400. #Sepsis (present on arrival)resolved #Acute metabolic encephalopathyimproving #Acute cystitis without hematuriaresolved Patient meets criteria given the tachycardia, altered mental status and diagnosis of UTI. Urinalysis revealing WBC 23 and 1+ bacteria. Blood cultures NGTD x 48 hours. Continue Rocephin 1 g every 24 hours (completes on 04/18/2022) #Toxic metabolic encephalopathyruled out #Hypernatremiaresolved #ARAMIS on CKD stage III secondary to vasomotor nephropathyimproving Sodium 165-->146 Creatinine 2.8 -->2.4--> 1.9-->1.4 Discontinued D5W to 100 cc/hour. Encouraged patient and family about increasing p.o. intake to prevent relapsing hypernatremia. Nephrology consulted; appreciate recs #Vascular dementia #Cerebral atherosclerosis Continue supportive care #Advanced care planning -Disease education conducted, care plan discussed, diagnoses discussed, prognosis discussed, and patient acknowledges understanding with care plan -Time: +30 min #Discharge planning - Patient is pending resolution of acute metabolic encephalopathy and completion of antibiotics for acute cystitis without hematuria. - Case management has been made aware. - Discharge is tentatively 48-72 hours Disposition Plan: Pending SNF authorization Total Time Spent with Patient (Minutes): 30 min History Interval history: No acute events overnight. Hospitalist Physical - Constitutional Vitals: Temp Pulse Resp BP Pulse Ox 97.2 F L 80 18 140/76 100 04/19/22 11:38 04/19/22 11:38 04/19/22 11:38 04/19/22 11:38 04/19/22 11:38 General appearance: Present: no acute distress, other (Baseline dementia) - EENT Eyes: Present: PERRL, EOM intact ENT: hearing intact, clear oral mucosa, dentition normal - Neck Neck: Present: supple, normal ROM - Respiratory Respiratory effort: normal Respiratory: bilateral: CTA - Cardiovascular Rhythm: regular Heart Sounds: Present: S1 & S2 - Extremities Extremities: no ischemia, pulses intact, pulses symmetrical, No edema, normal temperature, normal color Peripheral Pulses: within normal limits - Abdominal General gastrointestinal: soft, non-tender, non-distended, normal bowel sounds - Integumentary Integumentary: Present: clear, warm, dry - Psychiatric Psychiatric: agitated - Neurologic Neurologic: CNII-XII intact - Allied Health Allied health notes reviewed: nursing, case management Results - Labs CBC & Chem 7: 04/14/22 07:44 04/19/22 14:18 Labs: Laboratory Last Values WBC 6.5 K/mm3 (4.5-11.0) 04/14/22 07:44 RBC 4.62 M/mm3 (3.65-5.03) 04/14/22 07:44 Hgb 13.7 gm/dl (10.1-14.3) 04/14/22 07:44 Hct 43.6 % (30.3-42.9) H 04/14/22 07:44 MCV 94 fl (79-97) 04/14/22 07:44 MCH 30 pg (28-32) 04/14/22 07:44 MCHC 32 % (30-34) 04/14/22 07:44 RDW 15.8 % (13.2-15.2) H 04/14/22 07:44 Plt Count 168 K/mm3 (140-440) 04/14/22 07:44 Lymph % (Auto) 25.7 % (13.4-35.0) 04/14/22 07:44 [place] % (Auto) 5.1 % (0.0-7.3) 04/14/22 07:44 Eos % (Auto) 2.1 % (0.0-4.3) 04/14/22 07:44 Baso % (Auto) 0.4 % (0.0-1.8) 04/14/22 07:44 Lymph # (Auto) 1.7 K/mm3 (1.2-5.4) 04/14/22 07:44 [place] # (Auto) 0.3 K/mm3 (0.0-0.8) 04/14/22 07:44 Eos # (Auto) 0.1 K/mm3 (0.0-0.4) 04/14/22 07:44 Baso # (Auto) 0.0 K/mm3 (0.0-0.1) 04/14/22 07:44 Seg Neutrophils % 66.7 % (40.0-70.0) 04/14/22 07:44 Seg Neutrophils # 4.3 K/mm3 (1.8-7.7) 04/14/22 07:44 PT 15.6 Sec. (12.2-14.9) H 04/13/22 13:04 INR 1.11 (0.87-1.13) 04/13/22 13:04 APTT 31.3 Sec. (24.2-36.6) 04/13/22 13:04 Sodium 143 mmol/L (137-145) 04/19/22 14:18 Potassium 3.9 mmol/L (3.6-5.0) 04/19/22 14:18 Chloride 110.4 mmol/L (98-107) H 04/19/22 14:18 Carbon Dioxide 21 mmol/L (22-30) L 04/19/22 14:18 Anion Gap 16 mmol/L 04/19/22 14:18 BUN 20 mg/dL (7-17) H 04/19/22 14:18 Creatinine 1.2 mg/dL (0.6-1.2) 04/19/22 14:18 Estimated GFR 52 ml/min 04/19/22 14:18 BUN/Creatinine Ratio 17 % 04/19/22 14:18 Glucose 90 mg/dL (65-100) 04/19/22 14:18 Osmolality 384 Mosm/kg 04/13/22 13:04 Lactic Acid 2.00 mmol/L (0.7-2.0) 04/15/22 08:15 Calcium 8.5 mg/dL (8.4-10.2) 04/19/22 14:18 Phosphorus 3.20 mg/dL (2.5-4.5) 04/15/22 06:37 Total Bilirubin 0.50 mg/dL (0.1-1.2) 04/13/22 13:04 AST 39 units/L (5-40) 04/13/22 13:04 ALT 32 units/L (7-56) 04/13/22 13:04 Alkaline Phosphatase 162 units/L (35-129) H 04/13/22 13:04 Ammonia 14.0 umol/L (25-60) L 04/13/22 13:04 Total Protein 7.2 g/dL (6.3-8.2) 04/13/22 13:04 Albumin 4.3 g/dL (3.9-5) 04/13/22 13:04 Albumin/Globulin Ratio 1.5 % 04/13/22 13:04 Urine Color Yellow (Yellow) 04/13/22 13:51 Urine Turbidity Slightly-cloudy (Clear) 04/13/22 13:51 Specific [place] (Man) 1.010 (1.003-1.030) 04/13/22 13:51 Ur Protein (Man) <30 mg dl mg/dL (Negative) 04/13/22 13:51 Ur Ketones (Man) Negative (Negative) 04/13/22 13:51 Ur Nitrite (Man) Negative (Negative) 04/13/22 13:51 Urine Bilirubin (Man) Negative (Negative) 04/13/22 13:51 Urine Ictotest Not Reportable 04/13/22 13:51 Leukocyte Esterase (Man) Negative (Negative) 04/13/22 13:51 Urine WBC (Auto) 23.0 /HPF (0.0-6.0) H 04/13/22 13:51 Urine RBC (Auto) 23.0 /HPF (0.0-6.0) 04/13/22 13:51 U Epithel Cells (Auto) 3.0 /HPF (0-13.0) 04/13/22 13:51 Urine Bacteria (Auto) 1+ /HPF (Negative) 04/13/22 13:51 Urine RBC (Manual) 3+ (Negative) 04/13/22 13:51 Salicylates < 0.3 mg/dL (2.8-20.0) L 04/13/22 13:04 Acetaminophen 5.0 ug/mL (10.0-30.0) L 04/13/22 13:04 SARS-CoV-2 (PCR) Negative (Negative) 04/17/22 11:50 Microbiology: Microbiology 04/14/22 14:16 Peripheral/Venous Blood Culture - Final NO GROWTH AFTER 5 DAYS 04/14/22 13:32 Peripheral/Venous Blood Culture - Final NO GROWTH AFTER 5 DAYS Griffiths/IV: Voiding Method Incontinent Active Medications - Current Medications Current Medications: Generic Name Dose Route Start Last Admin Trade Name Freq PRN Reason Stop Dose Admin Acetaminophen 650 mg 04/13/22 18:51 Acetaminophen 325 Mg Tab PO Q4H PRN Pain MILD(1-3)/Fever >100.5/BENSON Albuterol 2.5 mg 04/13/22 18:51 Albuterol 2.5 Mg/3 Ml Nebu IH Q4HRT PRN Shortness Of Breath Hydromorphone HCl 0.5 mg 04/13/22 18:51 04/18/22 02:08 Hydromorphone 0.5 Mg/0.5 Ml Inj IV 0.5 mg Q23H PRN Administration Pain , Severe (7-10) Dextrose 1,000 mls @ 75 mls/hr 04/18/22 15:00 D5w IV DIRECT LISA Ondansetron HCl 4 mg 04/13/22 18:51 Ondansetron 4 Mg/2 Ml Inj IV Q8H PRN Nausea And Vomiting Oxycodone/Acetaminophen 1 tab 04/13/22 18:51 Oxycodone /Acetaminophen 5-325mg Tab PO Q6H PRN Pain, Moderate (4-6) Sodium Chloride 10 ml 04/13/22 22:00 04/19/22 09:27 Sodium Chloride 0.9% 10 Ml Flush Syringe IV 10 ml BID LISA Administration Sodium Chloride 10 ml 04/13/22 18:51 Sodium Chloride 0.9% 10 Ml Flush Syringe IV PRN PRN LINE FLUSH Nutrition/Malnutrition Assess - Dietary Evaluation Nutrition/Malnutrition Findings: Nutrition Notes Start: 04/14/22 14:32 Freq: Status: Active Protocol: Document 04/18/22 12:44 CORBY (Rec: 04/18/22 12:50 CORBY [email or web address]) Nutrition Notes Initial or Follow up Reassessment Current Diagnosis Acute Kidney Injury Other Pertinent Diagnosis Acute metabolic encephalopathy , acute cystitis, vascular dementia Current Diet Renal GI soft Labs/Tests BUN 24 Cr 1.5 Pertinent Medications Reviewed Height 5 ft 5 in Weight 45.7 kg [place] Body Weight (kg) 56.81 BMI 16.7 Weight Status Underweight Subjective/Other Information No PO intakes documented for past two days and 0% of meals consumed on 04/15 and 04/16. Pt scheduled for D/C today. Burn Absent Trauma Absent #2 Nutrition Diagnosis Underweight Diagnosis Progress(for reassessment Continues documentation) #1 Nutrition Diagnosis Malnutrition As Evidenced by Signs and Symptoms poor PO intake Diagnosis Progress(for reassessment Continues documentation) Is patient on ventilator? No Is Patient Ambulatory and/or Out of Bed No REE-([facility]-confined to bed) 1120.584 Kcal/Kg value to use for calculation 35 Approximate Energy Requirements Using 1600 kcal/Kg Calculation Used for Recommendations Kcal/kg Additional Notes Pro needs 0.8-1.2g/k-55g/ day Fluid needs per MD. Nutrition Intervention Change Diet Order: Continue current diet order Goal #1 PO intake to meet nutrient needs as best possible Goal #2 Wt maintenance and/or gain Anticipated Discharge Needs: Consider ONS 2-3 times daily if PO intake of meals remain suboptimal Follow-Up By: 04/21/22 Additional Comments F/U: intakes, need for ONS
--- NOTE | 2022-04-20 09:10 | Progress Note ---
Assessment and Plan 1. Acute kidney injury: Vasomotor ARAMIS in the setting of volume depletion. Renal US showed mild R hydro ?significance. Baseline renal function unknown. Monitor renal function. Creatinine level is better since admission. Avoid nephrotoxic agents. Meds dosage based on GFR. 2. FEN: Acute Hypernatremia, appropriate IV fluids, improved, monitor. Replete lytes appropriately. Monitor lytes and volume status. 3. Sepsis, POA: Likely 2/2 UTI. Abx. Monitor. 4. UTI. 5. Toxic metabolic encephalopathy. 6. Dementia. Subjective: Patient was seen and examined at the bedside. Examination: General appearance: well-developed, appears stated age, appears emaciated, no distress HEENT: atraumatic, JOSE RAMON Neck: trachea midline Respiratory: ctab Heart: S1S2, regular, no murmur Abdomen: soft, bowel sounds heard, NT Integumentary: no obvious rash Neurologic: lethargic Ext: no edema Subjective Date of service: 04/20/22 Objective - Vital Signs Vital signs: Vital Signs - 12hr 04/19/22 04/20/22 23:11 00:50 Temperature 98 F Pulse Rate 96 H Respiratory 18 Rate Blood Pressure 138/62 [Left] O2 Sat by Pulse 100 97 Oximetry - Lab 04/14/22 07:44 04/21/22 07:36 Most recent lab results Calcium 8.5 mg/dL (8.4-10.2) 04/19/22 14:18 Phosphorus 3.20 mg/dL (2.5-4.5) 04/15/22 06:37 Medications & Allergies - Medications Allergies/Adverse Reactions: Allergies No Known Allergies Allergy (Verified 04/13/22 21:28) Active Medications: Generic Name Dose Route Start Last Admin Trade Name Freq PRN Reason Stop Dose Admin Acetaminophen 650 mg 04/13/22 18:51 Acetaminophen 325 Mg Tab PO Q4H PRN Pain MILD(1-3)/Fever >100.5/BENSON Albuterol 2.5 mg 04/13/22 18:51 Albuterol 2.5 Mg/3 Ml Nebu IH Q4HRT PRN Shortness Of Breath Hydromorphone HCl 0.5 mg 04/13/22 18:51 04/18/22 02:08 Hydromorphone 0.5 Mg/0.5 Ml Inj IV 0.5 mg Q23H PRN Administration Pain , Severe (7-10) Ondansetron HCl 4 mg 04/13/22 18:51 Ondansetron 4 Mg/2 Ml Inj IV Q8H PRN Nausea And Vomiting Oxycodone/Acetaminophen 1 tab 04/13/22 18:51 Oxycodone /Acetaminophen 5-325mg Tab PO Q6H PRN Pain, Moderate (4-6) Sodium Chloride 10 ml 04/13/22 22:00 04/19/22 21:36 Sodium Chloride 0.9% 10 Ml Flush Syringe IV 10 ml BID LISA Administration Sodium Chloride 10 ml 04/13/22 18:51 Sodium Chloride 0.9% 10 Ml Flush Syringe IV PRN PRN LINE FLUSH
--- NOTE | 2022-04-20 13:07 | Progress Note ---
Assessment and Plan Assessment and plan: 81 YO Female with Vascular Dementia, Cerebral Atherosclerosis, Debility, HTN presents to ED for evaluation of increased weakness and confusion over the past 2 weeks with worsening symptoms over the past 3 days. Patient is currently bedbound and nonambulatory and requires 6/6 assistance with activities of daily living. Patient has palliative performance score of 30%. Patient has experienced worsening memory loss over the past 2 months, as well as 15 pound weight loss over the past 1 month. EMS was notified and upon arrival the patient was found to be in distress and subsequent transported to [facility] for further care and evaluation of the aforementioned symptoms. The patient was seen and evaluated in the emergency department. All lab and imaging studies reviewed. Patient found to have urinary tract infection complicated by metabolic encephalopathy, hypernatremia, volume depletion, metabolic acidosis, and ARAMIS with ATN. Patient admitted to medical floor due to increased risk of worsening symptoms and for medical stabilization. Hospital course: 04/14/2022. Patient was recently treated in the emergency department but discharged home for UTI. Patient was given a prescription for Keflex for 7 days. Creatinine at that time was noted to be 1.9. Today the creatinine is 2.8. We will check renal ultrasound to rule out obstruction/hydronephrosis. Continue IV fluid hydration for now. Recheck BMP in the morning. Patient has 2 orders for IV fluids--lactated Ringer's and half-normal saline. We will discontinue lactated Ringer's and continue with hypotonic half-normal saline IV fluid. Continue IV antibiotics and follow-up blood and urine cultures. 04/15/2020. Patient still experiencing acute metabolic encephalopathy. Hypernatremia with sodium of 165. Improvement in creatinine (currently 1.9 and down from 2.4). Ordered NG tube placement with free water flushes at 300 cc every 6 hours. Increased D5W to 150 cc/hour. Patient becomes overloaded, Lasix can be administered. Pending repeat BMP at 1400. #Sepsis (present on arrival)resolved #Acute metabolic encephalopathyimproving #Acute cystitis without hematuriaresolved Patient meets criteria given the tachycardia, altered mental status and diagnosis of UTI. Urinalysis revealing WBC 23 and 1+ bacteria. Blood cultures NGTD x 48 hours. Continue Rocephin 1 g every 24 hours (completes on 04/18/2022) #Toxic metabolic encephalopathyruled out #Hypernatremiaresolved #ARAMIS on CKD stage III secondary to vasomotor nephropathyimproving Sodium 165-->146 Creatinine 2.8 -->2.4--> 1.9-->1.4 Discontinued D5W to 100 cc/hour. Encouraged patient and family about increasing p.o. intake to prevent relapsing hypernatremia. Nephrology consulted; appreciate recs #Vascular dementia #Cerebral atherosclerosis Continue supportive care #Advanced care planning -Disease education conducted, care plan discussed, diagnoses discussed, prognosis discussed, and patient acknowledges understanding with care plan -Time: +30 min #Discharge planning - Patient is pending resolution of acute metabolic encephalopathy and completion of antibiotics for acute cystitis without hematuria. - Case management has been made aware. - Discharge is tentatively 48-72 hours Disposition Plan: Pending rehab authorization Total Time Spent with Patient (Minutes): 30 minutes History Interval history: No acute events overnight. Hospitalist Physical - Constitutional Vitals: Temp Pulse Resp BP Pulse Ox 98 F 96 H 18 138/62 98 04/19/22 23:11 04/19/22 23:11 04/19/22 23:11 04/19/22 23:11 04/20/22 12:00 General appearance: Present: no acute distress, other (Baseline dementia) - EENT Eyes: Present: PERRL, EOM intact ENT: hearing intact, clear oral mucosa, dentition normal - Neck Neck: Present: supple, normal ROM - Respiratory Respiratory effort: normal Respiratory: bilateral: CTA - Cardiovascular Rhythm: regular Heart Sounds: Present: S1 & S2 - Extremities Extremities: no ischemia, pulses intact, pulses symmetrical, No edema, normal temperature, normal color Peripheral Pulses: within normal limits - Abdominal General gastrointestinal: soft, non-tender, non-distended, normal bowel sounds - Integumentary Integumentary: Present: clear, warm, dry - Psychiatric Psychiatric: cooperative - Neurologic Neurologic: CNII-XII intact - Allied Health Allied health notes reviewed: nursing, social work, case management Results - Labs CBC & Chem 7: 04/14/22 07:44 04/19/22 14:18 Labs: Laboratory Last Values WBC 6.5 K/mm3 (4.5-11.0) 04/14/22 07:44 RBC 4.62 M/mm3 (3.65-5.03) 04/14/22 07:44 Hgb 13.7 gm/dl (10.1-14.3) 04/14/22 07:44 Hct 43.6 % (30.3-42.9) H 04/14/22 07:44 MCV 94 fl (79-97) 04/14/22 07:44 MCH 30 pg (28-32) 04/14/22 07:44 MCHC 32 % (30-34) 04/14/22 07:44 RDW 15.8 % (13.2-15.2) H 04/14/22 07:44 Plt Count 168 K/mm3 (140-440) 04/14/22 07:44 Lymph % (Auto) 25.7 % (13.4-35.0) 04/14/22 07:44 Dane % (Auto) 5.1 % (0.0-7.3) 04/14/22 07:44 Eos % (Auto) 2.1 % (0.0-4.3) 04/14/22 07:44 Baso % (Auto) 0.4 % (0.0-1.8) 04/14/22 07:44 Lymph # (Auto) 1.7 K/mm3 (1.2-5.4) 04/14/22 07:44 Dane # (Auto) 0.3 K/mm3 (0.0-0.8) 04/14/22 07:44 Eos # (Auto) 0.1 K/mm3 (0.0-0.4) 04/14/22 07:44 Baso # (Auto) 0.0 K/mm3 (0.0-0.1) 04/14/22 07:44 Seg Neutrophils % 66.7 % (40.0-70.0) 04/14/22 07:44 Seg Neutrophils # 4.3 K/mm3 (1.8-7.7) 04/14/22 07:44 PT 15.6 Sec. (12.2-14.9) H 04/13/22 13:04 INR 1.11 (0.87-1.13) 04/13/22 13:04 APTT 31.3 Sec. (24.2-36.6) 04/13/22 13:04 Sodium 143 mmol/L (137-145) 04/19/22 14:18 Potassium 3.9 mmol/L (3.6-5.0) 04/19/22 14:18 Chloride 110.4 mmol/L (98-107) H 04/19/22 14:18 Carbon Dioxide 21 mmol/L (22-30) L 04/19/22 14:18 Anion Gap 16 mmol/L 04/19/22 14:18 BUN 20 mg/dL (7-17) H 04/19/22 14:18 Creatinine 1.2 mg/dL (0.6-1.2) 04/19/22 14:18 Estimated GFR 52 ml/min 04/19/22 14:18 BUN/Creatinine Ratio 17 % 04/19/22 14:18 Glucose 90 mg/dL (65-100) 04/19/22 14:18 Osmolality 384 Mosm/kg 04/13/22 13:04 Lactic Acid 2.00 mmol/L (0.7-2.0) 04/15/22 08:15 Calcium 8.5 mg/dL (8.4-10.2) 04/19/22 14:18 Phosphorus 3.20 mg/dL (2.5-4.5) 04/15/22 06:37 Total Bilirubin 0.50 mg/dL (0.1-1.2) 04/13/22 13:04 AST 39 units/L (5-40) 04/13/22 13:04 ALT 32 units/L (7-56) 04/13/22 13:04 Alkaline Phosphatase 162 units/L (35-129) H 04/13/22 13:04 Ammonia 14.0 umol/L (25-60) L 04/13/22 13:04 Total Protein 7.2 g/dL (6.3-8.2) 04/13/22 13:04 Albumin 4.3 g/dL (3.9-5) 04/13/22 13:04 Albumin/Globulin Ratio 1.5 % 04/13/22 13:04 Urine Color Yellow (Yellow) 04/13/22 13:51 Urine Turbidity Slightly-cloudy (Clear) 04/13/22 13:51 Specific [place] (Man) 1.010 (1.003-1.030) 04/13/22 13:51 Ur Protein (Man) <30 mg dl mg/dL (Negative) 04/13/22 13:51 Ur Ketones (Man) Negative (Negative) 04/13/22 13:51 Ur Nitrite (Man) Negative (Negative) 04/13/22 13:51 Urine Bilirubin (Man) Negative (Negative) 04/13/22 13:51 Urine Ictotest Not Reportable 04/13/22 13:51 Leukocyte Esterase (Man) Negative (Negative) 04/13/22 13:51 Urine WBC (Auto) 23.0 /HPF (0.0-6.0) H 04/13/22 13:51 Urine RBC (Auto) 23.0 /HPF (0.0-6.0) 04/13/22 13:51 U Epithel Cells (Auto) 3.0 /HPF (0-13.0) 04/13/22 13:51 Urine Bacteria (Auto) 1+ /HPF (Negative) 04/13/22 13:51 Urine RBC (Manual) 3+ (Negative) 04/13/22 13:51 Salicylates < 0.3 mg/dL (2.8-20.0) L 04/13/22 13:04 Acetaminophen 5.0 ug/mL (10.0-30.0) L 04/13/22 13:04 SARS-CoV-2 (PCR) Negative (Negative) 04/17/22 11:50 Microbiology: Microbiology 04/14/22 14:16 Peripheral/Venous Blood Culture - Final NO GROWTH AFTER 5 DAYS 04/14/22 13:32 Peripheral/Venous Blood Culture - Final NO GROWTH AFTER 5 DAYS Griffiths/IV: Voiding Method Incontinent Active Medications - Current Medications Current Medications: Generic Name Dose Route Start Last Admin Trade Name Freq PRN Reason Stop Dose Admin Acetaminophen 650 mg 04/13/22 18:51 Acetaminophen 325 Mg Tab PO Q4H PRN Pain MILD(1-3)/Fever >100.5/BENSON Albuterol 2.5 mg 04/13/22 18:51 Albuterol 2.5 Mg/3 Ml Nebu IH Q4HRT PRN Shortness Of Breath Hydromorphone HCl 0.5 mg 04/13/22 18:51 04/18/22 02:08 Hydromorphone 0.5 Mg/0.5 Ml Inj IV 0.5 mg Q23H PRN Administration Pain , Severe (7-10) Ondansetron HCl 4 mg 04/13/22 18:51 Ondansetron 4 Mg/2 Ml Inj IV Q8H PRN Nausea And Vomiting Oxycodone/Acetaminophen 1 tab 04/13/22 18:51 Oxycodone /Acetaminophen 5-325mg Tab PO Q6H PRN Pain, Moderate (4-6) Sodium Chloride 10 ml 04/13/22 22:00 04/20/22 09:13 Sodium Chloride 0.9% 10 Ml Flush Syringe IV 10 ml BID LISA Administration Sodium Chloride 10 ml 04/13/22 18:51 Sodium Chloride 0.9% 10 Ml Flush Syringe IV PRN PRN LINE FLUSH Nutrition/Malnutrition Assess - Dietary Evaluation Nutrition/Malnutrition Findings: Nutrition Notes Start: 04/14/22 14:32 Freq: Status: Active Protocol: Document 04/18/22 12:44 CORBY (Rec: 04/18/22 12:50 CORBY [id number]) Nutrition Notes Initial or Follow up Reassessment Current Diagnosis Acute Kidney Injury Other Pertinent Diagnosis Acute metabolic encephalopathy , acute cystitis, vascular dementia Current Diet Renal GI soft Labs/Tests BUN 24 Cr 1.5 Pertinent Medications Reviewed Height 5 ft 5 in Weight 45.7 kg [place] Body Weight (kg) 56.81 BMI 16.7 Weight Status Underweight Subjective/Other Information No PO intakes documented for past two days and 0% of meals consumed on 04/15 and 04/16. Pt scheduled for D/C today. Burn Absent Trauma Absent #2 Nutrition Diagnosis Underweight Diagnosis Progress(for reassessment Continues documentation) #1 Nutrition Diagnosis Malnutrition As Evidenced by Signs and Symptoms poor PO intake Diagnosis Progress(for reassessment Continues documentation) Is patient on ventilator? No Is Patient Ambulatory and/or Out of Bed No REE-([facility]-confined to bed) 1120.584 Kcal/Kg value to use for calculation 35 Approximate Energy Requirements Using 1600 kcal/Kg Calculation Used for Recommendations Kcal/kg Additional Notes Pro needs 0.8-1.2g/k-55g/ day Fluid needs per MD. Nutrition Intervention Change Diet Order: Continue current diet order Goal #1 PO intake to meet nutrient needs as best possible Goal #2 Wt maintenance and/or gain Anticipated Discharge Needs: Consider ONS 2-3 times daily if PO intake of meals remain suboptimal Follow-Up By: 04/21/22 Additional Comments F/U: intakes, need for ONS
[2022-04-21 08:32] LABS: Calcium 8.9 mg/dL (8.4-10.2)
[2022-04-21 12:08] VITALS: BP 111/39
--- NOTE | 2022-04-21 13:21 | Progress Note ---
Assessment and Plan 1. Acute kidney injury: Vasomotor ARAMIS in the setting of volume depletion. Renal US showed mild R hydro ?significance. Baseline renal function unknown. Monitor renal function. Creatinine level is better since admission. Avoid nephrotoxic agents. Meds dosage based on GFR. 2. FEN: Acute Hypernatremia, appropriate IV fluids, improved, monitor. Replete lytes appropriately. Monitor lytes and volume status. 3. Sepsis, POA: Likely 2/2 UTI. Abx. Monitor. 4. UTI. 5. Toxic metabolic encephalopathy. 6. Dementia. F/u in 1-2 weeks. Subjective: Patient was seen and examined at the bedside. and son at the bedside. Examination: General appearance: well-developed, appears stated age, appears emaciated, no distress HEENT: atraumatic, JOSE RAMON Neck: trachea midline Respiratory: ctab Heart: S1S2, regular, no murmur Abdomen: soft, bowel sounds heard, NT Integumentary: no obvious rash Neurologic: somnolent, moving exts, not following any command, mittens noted Ext: no edema Subjective Date of service: 04/21/22 Objective - Vital Signs Vital signs: Vital Signs - 12hr 04/21/22 04/21/22 04/21/22 09:48 11:38 11:40 Temperature 98.4 F Pulse Rate 74 Respiratory 18 Rate Blood Pressure 111/39 O2 Sat by Pulse 97 83 L 94 Oximetry - Lab 04/14/22 07:44 04/21/22 07:36 Most recent lab results Calcium 8.9 mg/dL (8.4-10.2) 04/21/22 07:36 Phosphorus 3.20 mg/dL (2.5-4.5) 04/15/22 06:37 Medications & Allergies - Medications Allergies/Adverse Reactions: Allergies No Known Allergies Allergy (Verified 04/13/22 21:28) Active Medications: Generic Name Dose Route Start Last Admin Trade Name Freq PRN Reason Stop Dose Admin Acetaminophen 650 mg 04/13/22 18:51 Acetaminophen 325 Mg Tab PO Q4H PRN Pain MILD(1-3)/Fever >100.5/BENSON Albuterol 2.5 mg 04/13/22 18:51 Albuterol 2.5 Mg/3 Ml Nebu IH Q4HRT PRN Shortness Of Breath Hydromorphone HCl 0.5 mg 04/13/22 18:51 04/18/22 02:08 Hydromorphone 0.5 Mg/0.5 Ml Inj IV 0.5 mg Q23H PRN Administration Pain , Severe (7-10) Ondansetron HCl 4 mg 04/13/22 18:51 Ondansetron 4 Mg/2 Ml Inj IV Q8H PRN Nausea And Vomiting Oxycodone/Acetaminophen 1 tab 04/13/22 18:51 Oxycodone /Acetaminophen 5-325mg Tab PO Q6H PRN Pain, Moderate (4-6) Sodium Chloride 10 ml 04/13/22 22:00 04/21/22 09:46 Sodium Chloride 0.9% 10 Ml Flush Syringe IV 10 ml BID LISA Administration Sodium Chloride 10 ml 04/13/22 18:51 Sodium Chloride 0.9% 10 Ml Flush Syringe IV PRN PRN LINE FLUSH
== END 2022-04-21 17:05 | DRG 871 ==
LOC: ED 11:09 → 3A 18:51
PROVIDERS: ADMIT Internal Medicine; ATTEND Student in an Organized Health Care Education/Training Program
DX: A41.9 Sepsis, unspecified organism (principal); G93.41 Metabolic encephalopathy; N17.0 Acute kidney failure with tubular necrosis; E87.0 Hyperosmolality and hypernatremia; N30.00 Acute cystitis without hematuria; Z20.822 Contact with and (suspected) exposure to COVID-19; I67.2 Cerebral atherosclerosis; I12.9 Hypertensive chronic kidney disease with stage 1 through stage 4 chronic kidney disease, or unspecified chronic kidney disease; N18.30 Chronic kidney disease, stage 3 unspecified; F01.50 Vascular dementia, unspecified severity, without behavioral disturbance, psychotic disturbance, mood disturbance, and anxiety; R53.81 Other malaise; E86.9 Volume depletion, unspecified; Z83.3 Family history of diabetes mellitus; Z82.49 Family history of ischemic heart disease and other diseases of the circulatory system; Z90.710 Acquired absence of both cervix and uterus; Z87.891 Personal history of nicotine dependence; Z74.01 Bed confinement status
CPT/HCPCS: 36415; 70450; 71045; 74018; 76770; 80048; 80053; 80320; 81001; 82140; 83930; 84100; 84154; 85025; 85610; 85730; 87040; 87086; 93005; 94760; G0378; J3490; J7070; G0480; J0692; J0696; J1170; J3486; J7030; J7040; J7042; J7120; U0003